=== PATIENT | male | born 1955 | race Caucasian/White ===

== ENCOUNTER 2017-11-19 15:17 | Outpatient (RCR) | payer OTHER, SELFPAY ==
[2017-11-19 16:36] LABS: International Normalized Ratio 2.9; Prothrombin Time (Protime)PT. 28.8 SECONDS (11.7-14.9)
== END 2017-11-19 15:30 | disposition home or self-care (01) ==
LOC: LAB 15:17
PROVIDERS: Family Provider Internal Medicine; PCP Internal Medicine; Visit Provider Internal Medicine Cardiovascular Disease
DX: I48.1 Persistent atrial fibrillation (principal); Z79.01 Long term (current) use of anticoagulants
CPT/HCPCS: 36415; 85610

== ENCOUNTER 2018-01-09 16:25 | Outpatient (RCR) | payer OTHER, SELFPAY ==
[2018-01-09 17:25] LABS: International Normalized Ratio 2.5; Prothrombin Time (Protime)PT. 27.3 SECONDS (11.7-14.9)
== END 2018-01-09 17:00 | disposition home or self-care (01) ==
LOC: LAB 16:25
PROVIDERS: Family Provider Internal Medicine; PCP Internal Medicine; Visit Provider Internal Medicine Cardiovascular Disease
DX: I48.1 Persistent atrial fibrillation (principal); Z79.01 Long term (current) use of anticoagulants
CPT/HCPCS: 36415; 85610

== ENCOUNTER 2018-07-31 15:18 | Outpatient (RCR) | payer OTHER, SELFPAY ==
[2018-07-31 16:15] LABS: International Normalized Ratio 2.2; Prothrombin Time (Protime)PT. 24.7 SECONDS (11.7-14.9)
== END 2018-07-31 17:00 | disposition home or self-care (01) ==
LOC: LAB 15:18
PROVIDERS: Family Provider Internal Medicine; PCP Internal Medicine; Referring Provider Internal Medicine Cardiovascular Disease; Visit Provider Internal Medicine Cardiovascular Disease
DX: I48.0 Paroxysmal atrial fibrillation (principal); I48.91 Unspecified atrial fibrillation; Z79.01 Long term (current) use of anticoagulants
CPT/HCPCS: 36415; 85610

== ENCOUNTER 2018-09-16 15:23 | Outpatient (RCR) | payer OTHER, SELFPAY ==
[2018-09-16 16:45] LABS: International Normalized Ratio 2.4; Prothrombin Time (Protime)PT. 26.1 SECONDS (11.7-14.9)
== END 2018-09-27 10:38 | disposition home or self-care (01) ==
LOC: LAB 15:23
PROVIDERS: Family Provider Internal Medicine; PCP Internal Medicine; Referring Provider Internal Medicine Cardiovascular Disease; Visit Provider Internal Medicine Cardiovascular Disease
DX: I48.0 Paroxysmal atrial fibrillation (principal); I48.91 Unspecified atrial fibrillation; Z79.01 Long term (current) use of anticoagulants
CPT/HCPCS: 36415; 85610

== ENCOUNTER 2018-11-08 15:19 | Outpatient (RCR) | payer OTHER, SELFPAY ==
[2018-11-08 17:22] LABS: International Normalized Ratio 2.2; Prothrombin Time (Protime)PT. 24.3 SECONDS (11.7-14.9)
== END 2018-11-08 16:00 | disposition home or self-care (01) ==
LOC: LAB 15:19
PROVIDERS: Family Provider Internal Medicine; PCP Internal Medicine; Referring Provider Internal Medicine Cardiovascular Disease; Visit Provider Internal Medicine Cardiovascular Disease
DX: I48.0 Paroxysmal atrial fibrillation (principal); I48.91 Unspecified atrial fibrillation; Z79.01 Long term (current) use of anticoagulants
CPT/HCPCS: 36415; 85610

== ENCOUNTER 2019-04-03 06:46 | Outpatient (RCR) | payer OTHER, SELFPAY ==
[2018-06-12 15:57] VITALS: BMI 40.0
[2018-12-10 15:18] VITALS: BMI 40.6
[2019-04-03 07:27] LABS: International Normalized Ratio 2.5; Prothrombin Time (Protime)PT. 26.8 SECONDS (11.7-14.9)
== END 2019-04-03 07:00 | disposition home or self-care (01) ==
LOC: LAB 06:46
PROVIDERS: Family Provider Internal Medicine; PCP Internal Medicine; Referring Provider Internal Medicine Cardiovascular Disease; Visit Provider Internal Medicine Cardiovascular Disease
DX: I48.0 Paroxysmal atrial fibrillation (principal); Z79.01 Long term (current) use of anticoagulants; Z92.29 Personal history of other drug therapy
CPT/HCPCS: 36415; 85610

== ENCOUNTER 2019-06-17 15:25 | Outpatient (RCR) | payer OTHER, SELFPAY ==
[2018-12-10 15:18] VITALS: BMI 40.6
[2019-06-09 16:10] VITALS: BMI 39.6
[2019-06-17 16:38] LABS: International Normalized Ratio 2.4; Prothrombin Time (Protime)PT. 26.2 SECONDS (11.7-14.9)
== END 2019-06-17 17:00 | disposition home or self-care (01) ==
LOC: LAB 15:25
PROVIDERS: Nurse Practitioner Family; Family Provider Internal Medicine; PCP Internal Medicine; Referring Provider Internal Medicine Cardiovascular Disease; Visit Provider Internal Medicine Cardiovascular Disease
DX: I48.0 Paroxysmal atrial fibrillation (principal); Z79.01 Long term (current) use of anticoagulants; Z92.29 Personal history of other drug therapy
CPT/HCPCS: 36415; 85610

== ENCOUNTER 2019-08-08 13:52 | Outpatient (RCR) | payer OTHER, SELFPAY ==
[2019-06-09 16:10] VITALS: BMI 39.6
[2019-08-08 15:21] LABS: International Normalized Ratio 2.3; Prothrombin Time (Protime)PT. 25.6 SECONDS (11.7-14.9)
== END 2019-08-08 18:00 | disposition home or self-care (01) ==
LOC: LAB 13:52
PROVIDERS: Family Provider Internal Medicine; PCP Internal Medicine; Referring Provider Internal Medicine Cardiovascular Disease; Visit Provider Internal Medicine Cardiovascular Disease
DX: I48.0 Paroxysmal atrial fibrillation (principal); Z79.01 Long term (current) use of anticoagulants; Z92.29 Personal history of other drug therapy
CPT/HCPCS: 36415; 85610

== ENCOUNTER 2019-10-27 15:21 | Outpatient (RCR) | payer OTHER, SELFPAY ==
[2019-06-09 16:10] VITALS: BMI 39.6
[2019-10-27 16:36] LABS: International Normalized Ratio 2.9; Prothrombin Time (Protime)PT. 30.1 SECONDS (11.7-14.9)
== END 2019-10-27 18:00 | disposition home or self-care (01) ==
LOC: LAB 15:21
PROVIDERS: Family Provider Internal Medicine; PCP Internal Medicine; Referring Provider Internal Medicine Cardiovascular Disease; Visit Provider Internal Medicine Cardiovascular Disease
DX: I48.0 Paroxysmal atrial fibrillation (principal); Z79.01 Long term (current) use of anticoagulants; Z92.29 Personal history of other drug therapy
CPT/HCPCS: 36415; 85610

== ENCOUNTER 2019-11-25 08:09 | Outpatient (RCR) | payer OTHER, SELFPAY ==
[2019-06-09 16:10] VITALS: BMI 39.6
[2019-11-25 08:32] LABS: International Normalized Ratio 2.6; Prothrombin Time (Protime)PT. 27.7 SECONDS (11.7-14.9)
== END 2019-11-25 18:00 | disposition home or self-care (01) ==
LOC: LAB 08:09
PROVIDERS: Family Provider Internal Medicine; PCP Internal Medicine; Referring Provider Internal Medicine Cardiovascular Disease; Visit Provider Internal Medicine Cardiovascular Disease
DX: I48.0 Paroxysmal atrial fibrillation (principal); Z79.01 Long term (current) use of anticoagulants; Z92.29 Personal history of other drug therapy
CPT/HCPCS: 36415; 85610

== ENCOUNTER → 2019-12-17 09:22 | Outpatient (CLI) | payer OTHER, SELFPAY ==
[2019-12-16 12:43] VITALS: BMI 40.2
[2019-12-17 09:41] LABS: Absolute Lymphocyte Count 2.65 X10^3/uL (0.83-4.51); Absolute Neutrophil Count 6.1 X10^3/uL (2.0-7.7); Basophil# 0.07 X10^3/uL; Basophil% 0.7 % (0-1); Eosinophil# 0.41 X10^3/uL; Eosinophils% 4.1 % (0-5); Hematocrit 48.4 % (40-54); Hemoglobin 15.3 g/dL (13.0-16.5); Lymphocyte # 2.65 X10^3/ul (4.0); Lymphocyte % 26.2 % (19-41); Mean Corp Hgb Conc 31.6 g/dL (32-36); Mean Corpuscular Hgb 27.4 pg (27.0-32.0); Mean Corpuscular Volume 86.6 fL (80-94); Mean Platelet Vol. 9.8 fl (6.2-12.0); Monocyte# 0.85 X10^3/uL; Monocyte% 8.4 % (0-10); NRBC Flagged by Analyzer 0 % (0-5); Neutrophil # 6.08 X10^3/uL (2.7-7.7); Platelet Count 329 K/mm3 (150-450); RBC Distribution Width CV 13.8 % (11.6-14.6); RBC Distribution Width SD 43.8 fl (35.1-43.9); Red Blood Count 5.59 M/mm3 (4.6-6.2); White Blood Count 10.1 K/mm3 (4.4-11.0)
[2019-12-20 03:07] LABS: Alternaria tenuis <0.10 kU/L (Class 0); Ash, White <0.10 kU/L (Class 0); Aspergillus fumigatus <0.10 kU/L (Class 0); Bermuda Grass <0.10 kU/L (Class 0); Birch <0.10 kU/L (Class 0); Black Walnut <0.10 kU/L (Class 0); Cat Hair / Dander,Stand <0.10 kU/L (Class 0); Cedar, Mountain <0.10 kU/L (Class 0); Cladosporium herbarum <0.10 kU/L (Class 0); Cockroach, American <0.10 kU/L (Class 0); Cottonwood <0.10 kU/L (Class 0); D farinae Mite 0.81 kU/L (Class II); D pteronyssinus 0.68 kU/L (Class II); Dog Epithelia <0.10 kU/L (Class 0); Elm, American White <0.10 kU/L (Class 0); Immunoglobulin E 94 IU/mL (6-495); Maple/Box Elder <0.10 kU/L (Class 0); Mulberry, White <0.10 kU/L (Class 0); Oak, White <0.10 kU/L (Class 0); Pecan <0.10 kU/L (Class 0); Penicillium Notatum <0.10 kU/L (Class 0); Pigweed, Rough <0.10 kU/L (Class 0); Ragweed, Short/Common <0.10 kU/L (Class 0); Russian Thistle <0.10 kU/L (Class 0); Sheep Sorrel <0.10 kU/L (Class 0); Sycamore, American <0.10 kU/L (Class 0); Timothy Grass <0.10 kU/L (Class 0)
[2019-12-20 10:13] LABS: Immunoglobulin E 96 IU/mL (6-495)
[2019-12-20 10:14] LABS: Mouse Urine <0.10 kU/L (Class 0)
== END ==
PROVIDERS: PCP Internal Medicine; Referring Provider Internal Medicine Critical Care Medicine; Visit Provider Internal Medicine Critical Care Medicine
DX: R06.02 Shortness of breath (principal)
CPT/HCPCS: 36415; 82785; 85025; 86003

== ENCOUNTER → 2020-01-07 | Outpatient (CLI) | payer OTHER, SELFPAY ==
[2019-12-16 12:43] VITALS: BMI 40.2
--- NOTE | 2020-01-09 10:21 | PFT ---
INTRODUCTION: The patient is a 64-year-old male that presents for pulmonary function studies secondary to a diagnosis of shortness of breath. Respiratory therapy reports good patient effort. Bronchodilators were used during testing. INTERPRETATION: Forced expiration spirometry demonstrates no evidence of a large airways obstructive ventilatory defect. There was no significant response to aerosolized bronchodilators. Spirograms are of good quality and plateau gradually indicating slow emptying of the lungs. Body plethysmography was performed and reveals lung volumes to be within normal limits. Diffusing capacity by single breath CO is also within normal limits at 86% of predicted. IMPRESSION: Grossly normal pulmonary function studies.
== END | disposition home or self-care (01) ==
LOC: PSN 12:37
PROVIDERS: PCP Internal Medicine; Referring Provider Internal Medicine Critical Care Medicine; Visit Provider Internal Medicine Critical Care Medicine
DX: R06.02 Shortness of breath (principal)
CPT/HCPCS: 94060; 94726; 94729

== ENCOUNTER → 2020-01-08 | Outpatient (CLI) | payer OTHER, SELFPAY ==
[2019-12-16 12:43] VITALS: BMI 40.2
[2020-01-08 12:39] VITALS: PULSE 75; PULSE 78; PULSE 92; PULSE 93; PULSE 96; O2SAT 95; O2SAT 96; O2SAT 98
--- NOTE | 2020-01-09 10:41 | PCM.PSN.6M ---
PSN 6 Minute Walk Test - 6 Minute Walk Test 6 Minute Walk Test: 6 Minute Walk Test PSN:6-Minute Walk Test Start: 01/08/20 12:39 Freq: Status: Active Protocol: [id number] Document 01/08/20 12:39 YULIANA (Rec: 01/08/20 12:41 YULIANA [id number]) 6 Minute Walk Test Date Performed 01/08/20 Time Performed 12:30 Height 6 ft Weight: 298 lb Weight in Pounds 298.[address]: Vipul Wang Assistive device used: None Pre-test Oxygen Delivery Method Room Air Pulse Ox (%) 96 Pulse Rate (60-100 beats/min) 75 Dyspnea Carisa Scale (0-10) 0 Exertion Carisa Scale (6-20) 6 1st minute Oxygen Delivery Method Room Air Pulse Ox (%) 96 Pulse Rate (60-100 beats/min) 92 2nd minute Oxygen Delivery Method Room Air Pulse Ox (%) 96 Pulse Rate (60-100 beats/min) 93 3rd minute Oxygen Delivery Method Room Air Pulse Ox (%) 95 Pulse Rate (60-100 beats/min) 93 4th minute Oxygen Delivery Method Room Air Pulse Ox (%) 95 Pulse Rate (60-100 beats/min) 93 5th minute Oxygen Delivery Method Room Air Pulse Ox (%) 95 Pulse Rate (60-100 beats/min) 96 6th minute Oxygen Delivery Method Room Air Pulse Ox (%) 95 Pulse Rate (60-100 beats/min) 96 Dyspnea Carisa Scale (0-10) 2 Exertion Carisa Scale (6-20) 12 Post-test Oxygen Delivery Method Room Air Pulse Ox (%) 98 Pulse Rate (60-100 beats/min) 78 Full Laps Walked 19 Partial Lap, Number of Tiles Walked 2 Total Distance Walked (ft) 1123 - Interpretation Interpretation: The patient ambulated 1123 feet over the course of 6 minutes beginning on room air without assistive devices or breaks. Pretesting oxygen saturation was noted to be 96% on room air. With ambulation, the rosie oxygen saturation was 95%. There was no significant exertional oxygen desaturation. - Recommendations Recommendations: There is no indication for the use of supplemental oxygen at this time.
== END | disposition home or self-care (01) ==
LOC: PSN 12:17
PROVIDERS: PCP Internal Medicine; Referring Provider Internal Medicine Critical Care Medicine; Visit Provider Internal Medicine Critical Care Medicine
DX: R06.02 Shortness of breath (principal)
CPT/HCPCS: 94618

== ENCOUNTER 2020-01-15 11:00 | Outpatient (RCR) | payer OTHER, SELFPAY ==
[2019-06-09 16:10] VITALS: BMI 39.6
[2019-12-16 12:43] VITALS: BMI 40.2
== END 2020-01-15 18:00 | disposition home or self-care (01) ==
LOC: LAB 11:00
PROVIDERS: Family Provider Internal Medicine; PCP Internal Medicine; Referring Provider Internal Medicine Cardiovascular Disease; Visit Provider Internal Medicine Cardiovascular Disease
DX: I48.0 Paroxysmal atrial fibrillation (principal); Z79.01 Long term (current) use of anticoagulants; Z92.29 Personal history of other drug therapy
CPT/HCPCS: 36415; 85610

== ENCOUNTER 2020-03-06 07:11 | Outpatient (RCR) | payer OTHER, SELFPAY ==
[2020-01-27 14:20] VITALS: BMI 40.6
[2020-03-06 08:04] LABS: International Normalized Ratio 2.6; Prothrombin Time (Protime)PT. 27.2 SECONDS (11.7-14.9)
== END 2020-03-06 18:00 | disposition home or self-care (01) ==
LOC: LAB 07:11
PROVIDERS: Family Provider Internal Medicine; PCP Internal Medicine; Referring Provider Internal Medicine Cardiovascular Disease; Visit Provider Internal Medicine Cardiovascular Disease
DX: I48.0 Paroxysmal atrial fibrillation (principal); Z79.01 Long term (current) use of anticoagulants; Z92.29 Personal history of other drug therapy
CPT/HCPCS: 36415; 85610

== ENCOUNTER 2020-07-16 07:32 | Outpatient (RCR) | payer OTHER, SELFPAY ==
[2020-01-27 14:20] VITALS: BMI 40.6
[2020-07-16 08:56] LABS: International Normalized Ratio 2.3
== END 2020-07-16 18:00 | disposition home or self-care (01) ==
LOC: LAB 07:32
PROVIDERS: Family Provider Internal Medicine; PCP Internal Medicine; Referring Provider Internal Medicine Cardiovascular Disease; Visit Provider Internal Medicine Cardiovascular Disease
DX: I48.0 Paroxysmal atrial fibrillation (principal); Z79.01 Long term (current) use of anticoagulants
CPT/HCPCS: 36415; 85610

== ENCOUNTER 2020-10-13 16:27 | Outpatient (RCR) | payer OTHER, SELFPAY ==
[2020-01-27 14:20] VITALS: BMI 40.6
[2020-10-13 16:04] VITALS: BMI 41.8
[2020-10-13 17:27] LABS: International Normalized Ratio 2.7; Prothrombin Time (Protime)PT. 28.2 SECONDS (11.7-14.9)
== END 2020-10-13 18:00 | disposition home or self-care (01) ==
LOC: LAB 16:27
PROVIDERS: Family Provider Internal Medicine; PCP Internal Medicine; Referring Provider Internal Medicine Cardiovascular Disease; Visit Provider Internal Medicine Cardiovascular Disease
DX: I48.0 Paroxysmal atrial fibrillation (principal); Z79.01 Long term (current) use of anticoagulants
CPT/HCPCS: 36415; 85610

== ENCOUNTER 2020-11-08 08:22 | Outpatient (RCR) | payer OTHER, SELFPAY ==
[2020-11-08 09:18] LABS: International Normalized Ratio 2.5; Prothrombin Time (Protime)PT. 26.3 SECONDS (11.7-14.9)
== END 2020-11-08 18:00 | disposition home or self-care (01) ==
LOC: LAB 08:22
PROVIDERS: Family Provider Internal Medicine; PCP Internal Medicine; Referring Provider Internal Medicine Cardiovascular Disease; Visit Provider Internal Medicine Cardiovascular Disease
DX: I48.0 Paroxysmal atrial fibrillation (principal); Z79.01 Long term (current) use of anticoagulants
CPT/HCPCS: 36415; 85610

== ENCOUNTER 2021-01-20 05:35 | Observation (INO) | payer OTHER, SELFPAY ==
[2021-01-20] VITALS (8 sets, daily range): BP systolic 131–160; BP diastolic 58–76; PULSE 55–69; RESP 18; TEMP 36.3–36.8; O2SAT 96–98; BMI 42.5; BMI 41.9; BMI 41.8
--- NOTE | 2021-01-20 05:48 | RAD_ITS ---
STUDY: X-RAY CHEST REASON FOR EXAM: Male, 65 years old. chest pain TECHNIQUE: AP portable COMPARISON: 03/08/2017 FINDINGS: The lungs are clear and expanded. There is no demonstrated pleural abnormality. There is borderline cardiomegaly. Normal mediastinum and beka. Normal visualized pulmonary arteries. Normal visualized aortic arch and descending thoracic aorta. Normal visualized thoracic spine. Normal visualized ribs, clavicles, and shoulders. There is no demonstrated abnormality of the visualized soft tissue structures of the upper abdomen. RAD/Chest 1 View (Portable) IMPRESSION: Negative x-ray examination of the chest. No interval change. Electronically Signed: Chandler Gonzalez MD at 6:19 EDT Tel , Service support ,
--- NOTE | 2021-01-20 05:48 | EKG12_ITS ---
Test Reason : CP Blood Pressure : / mmHG Vent. Rate : 066 BPM Atrial Rate : 066 BPM P-R Int : 166 ms QRS Dur : 100 ms QT Int : 408 ms P-R-T Axes : 075 -30 028 degrees QTc Int : 427 ms Normal sinus rhythm Left axis deviation Abnormal ECG Confirmed by YOEL DOBBS, CRISTAL ([id number]), videotape editor JOSE LUIS OROPEZA ([id number]) on 01/24/2021 1:23:05 PM Referred By: CL Confirmed By:BECCA DIALLO MD
--- NOTE | 2021-01-20 05:48 | ED.DCSUM_ITS ---
History of Present Illness Chief Complaint: Chest Pain Informant: Patient Narrative: 65-year-old male with past medical history of hypertension, ARABELLA, atrial fibrillation presents with concern for chest pain. States it began approximately 3 hours ago. Awoke him from sleep. States it is been persistent since that time. Aching in nature. Admits to mild shortness of breath and diaphoresis. Denies any nausea or vomiting. Patient is on Coumadin. Denies any history of coronary artery disease. Former smoker. Past Medical History - Allergies and Home Meds Allergies/Adverse Reactions: Allergies No Known Allergies Allergy (Verified 01/20/21 05:39) Primary Care Physician: Marie Marquis MD [Primary Care Provider] - Prior records reviewed: Yes Past Medical History: - - Hypertension, ARABELLA, atrial fibrillation Surgical History: noncontributory Lives: Spouse/ Significant Other Smoking Status: Former smoker Alcohol: Rare Drugs: None - Family History Paternal Family History: Family History (Last Reviewed 08/13/20 @ 10:11 by Palma Whiteside) Father CAD (coronary artery disease) Myocardial infarction S/P CABG x 3, Onset Age: 38 Mother Cancer Hypertension Sister Cardiomyopathy Sister Atrial fibrillation Grandmother CVA (cerebral vascular accident) Grandfather Cancer Family History: Reports: Heart Disease Review of Systems General: Reports: Sweats. Denies: Chills, Fever Eyes: Denies: Visual changes - bilaterally, Diplopia ENT: Denies: Rhinorrhea, Sore throat Cardiovascular: Reports: Chest pain. Denies: Palpitations Respiratory: Reports: Dyspnea. Denies: Cough, Dyspnea on exertion Gastrointestinal: Denies: Abdominal pain, Nausea, Vomiting, Diarrhea, Melena, Hematochezia Genitourinary: Denies: Dysuria, Hematuria, Frequency Musculoskeletal: Denies: Back pain, Extremity Pain Skin: Denies: Rash, Wounds Neurological: Denies: Headache, Weakness, Numbness Physical Exam Vital Signs/Narrative: Vital Signs Temp Pulse Resp BP Pulse Ox 01/20/21 05:35 98.3 F 69 18 160/58 H 98 Inital Vital Signs reviewed: Yes General: Well nourished, Well developed, No Acute Distress Head: Normocephalic, Atraumatic Eyes: Perrl, EOMI ENT: Moist mucous membranes, No rhinorrhea Neck: Supple, Nontender Cardiovascular: Regular rate, Regular rhythm, No murmurs Respiratory: No distress, CTA bilaterally, Chest nontender Abdomen: Soft, Nontender, Nondistended, Normal bowel sounds Back: Nontender, Normal Inspection Extremities: Nontender, No edema Skin: Normal color, No rash Neurological: Alert, Oriented x3, Cranial nerves II-XII grossly intact, Normal Strength, Normal Sensation Psychological: Normal affect, Normal Mood Diagnostic/Tx/Re-eval Chest X-Ray - ED: 1 View, Read by ED Physician, Read by Radiologist, Normal Laboratory Data 01/20/21 01/20/21 05:45 05:45 WBC 9.0 RBC 5.31 Hgb 14.4 Hct 46.0 MCV 86.6 MCH 27.1 MCHC 31.3 L RDW Std Deviation 42.8 RDW Coeff of Bob 13.5 Plt Count 320 MPV 9.7 Immature Gran % (Auto) 0.600 Neut % (Auto) 59.6 Lymph % (Auto) 26.6 [place] % (Auto) 10.4 H Eos % (Auto) 2.1 Baso % (Auto) 0.7 Absolute Neuts (auto) 5.4 Absolute Lymphs (auto) 2.40 Nucleated RBC % 0 Sodium 140 Potassium 3.9 Chloride 106 Carbon Dioxide 26.0 Anion Gap 8 BUN 21 H Creatinine 0.94 Estim Creat Clear Calc 87.14 Est GFR (MDRD) Af Amer 104 Est GFR (MDRD) Non-Af 86 BUN/Creatinine Ratio 22.4 H Glucose 105 Calcium 9.1 Magnesium 2.3 Troponin I < 0.015 - Rhythm Strip Rhythm Strip: Sinus Rhythm Rate: 66 Ectopy: None - EKG Initial EKG Interpretation: Sinus Rhythm - Normal sinus rhythm at 66 bpm. MD interval 166 ms. QTC of [address] changes. Left [place] deviation. - Medical Decision Making Patient appears well and nontoxic. Given aspirin and nitroglycerin upon arrival. EKG nonischemic. First troponin negative. Patient's story is concerning for cardiac chest pain given his shortness of breath and diaphoresis associated with retrosternal pressure-like chest pain radiating to his left arm. Spoke with hospitalist who is agreeable with admission. Patient admitted in stable condition. Impression: 1. Chest pain 2. Dyspnea 3. Diaphoresis ED Disposition - Plan for ED Patient: Disposition: Home or Assisted Living Referrals: Marie Marquis MD [Primary Care Provider] -
[2021-01-20 05:54] LABS: Absolute Neutrophil Count 5.4 X10^3/uL (2.0-7.7); Basophil# 0.06 X10^3/uL; Basophil% 0.7 % (0-1); Eosinophil# 0.19 X10^3/uL; Eosinophils% 2.1 % (0-5); Hemoglobin 14.4 g/dL (13.0-16.5); Lymphocyte % 26.6 % (19-41); Mean Corp Hgb Conc 31.3 g/dL (32-36); Mean Corpuscular Hgb 27.1 pg (27.0-32.0); Mean Corpuscular Volume 86.6 fL (80-94); Mean Platelet Vol. 9.7 fl (6.2-12.0); Monocyte# 0.94 X10^3/uL; Monocyte% 10.4 % (0-10); NRBC Flagged by Analyzer 0 % (0-5); Neutrophil # 5.37 X10^3/uL (2.7-7.7); Neutrophil % 59.6 % (47-70); Platelet Count 320 K/mm3 (150-450); RBC Distribution Width CV 13.5 % (11.6-14.6); RBC Distribution Width SD 42.8 fl (35.1-43.9); Red Blood Count 5.31 M/mm3 (4.6-6.2)
[2021-01-20] MEDS: Aspirin 81 MG TAB.CHEW 324 MG PO (05:55)
[2021-01-20] MEDS: Nitroglycerin SL (ED/IMG/CATH) 0.4 MG TABLET SL (06:01)
[2021-01-20 06:09] LABS: Anion Gap 8 (5-15); BUN 21 mg/dL (7-18); BUN/Creat Ratio 22.4 RATIO (10-20); Calcium,Total 9.1 mg/dL (8.5-10.1); Chloride 106 mmol/L (98-107); Creatinine, Serum 0.94 mg/dL (0.70-1.30); EST Glomerular Filtration Rate 86 mL/min (>60); Est Glom Filt Rate - Afr Amer 104 mL/min (>60); Estimated Creatinine Clearance 87.14 ml/min; Glucose 105 mg/dL (74-106); Magnesium 2.3 mg/dL (1.6-2.6); Potassium 3.9 mmol/L (3.5-5.1); Sodium Level 140 mmol/L (136-145)
--- NOTE | 2021-01-20 06:51 | PCM.HP.STD ---
Problem List (1) Chest pain Status: Acute Qualifiers: Chest pain type: unspecified Qualified Code(s): R07.9 - Chest pain, unspecified (2) Morbid obesity Status: Chronic (3) Hyperlipidemia Status: Chronic Qualifiers: Hyperlipidemia type: pure hypercholesterolemia Qualified Code(s): E78.00 - Pure hypercholesterolemia, unspecified; E78.0 - Pure hypercholesterolemia (4) Glaucoma Status: Chronic Qualifiers: Glaucoma type: unspecified Laterality: unspecified laterality Qualified Code(s): H40.9 - Unspecified glaucoma (5) Atrial fibrillation and flutter Status: Chronic (6) Hypertension Status: Chronic Qualifiers: Hypertension type: essential hypertension Qualified Code(s): I10 - Essential (primary) hypertension (7) Sleep apnea Status: Chronic Qualifiers: Sleep apnea type: unspecified type Qualified Code(s): G47.30 - Sleep apnea, unspecified (8) Asthma Status: Chronic Qualifiers: Asthma severity: unspecified severity Asthma persistence: unspecified Asthma complication type: unspecified Qualified Code(s): J45.909 - Unspecified asthma, uncomplicated History of Present Illness Date of Admission: 01/20/21 Chief Complaint: Chest pain The patient is a 65 y/o M w/ PMHx: PAF s/p RFA on chronic anticoagulation, HTN, HLD, ARABELLA, Morbid Obesity, GERD, Chronic Asthma, Former tobacco use who presents to the [facility] ED on 01/20/21 with history of being awoken from sleep with chest pain, midsternal region, noted pressure like sensation, rated 5/10 in severity with dyspnea, diaphoresis with eventual start of radiation to the left shoulder and LUE proximal arm near ~5:30 am prompting him to eventual present to the ED for evaluation. In the ED upon evaluation he notes his chest discomfort has been improving and currently rates it 3 out of 10 in severity. Work-up in the ED included T 98.3, heart 69, BP 160/58, respiratory rate 18, 98% on room air, repeat BP 146/65, CBC with WC 9, hemoglobin 14.4, platelet 320 without marked shift, BMP with BUN/creatinine 21/0.94, magnesium 2.3, troponin less than 0.015, EKG with sinus rhythm with nonspecific ST changes with no acute evidence of ischemia, chest x-ray without acute cardiopulmonary findings. In the ED patient ministered aspirin 300 mg p.o. x1 as well as nitroglycerin. Past Medical History Past Medical History (Chronic Problems): Chronic Problems (Last Reviewed 08/13/20 @ 10:11 by Palma Whiteside) Asthma (Chronic) PND (post-nasal drip) (Chronic) Obstructive sleep apnea (Chronic) History of radiofrequency ablation procedure for cardiac arrhythmia (Chronic) June [address] Matos at [facility] : atrial flutter/fib ablation Atrial flutter (Chronic) Dyspnea on exertion (Chronic) Paroxysmal atrial fibrillation (Chronic) Shortness of breath (Chronic) History of Coumadin therapy (Chronic) group home current use of anticoagulant (Chronic) Morbid obesity (Chronic) Hyperlipidemia (Chronic) Glaucoma (Chronic) Atrial fibrillation and flutter (Chronic) Hypertension (Chronic) Sleep apnea (Chronic) Medical History: Medical History (Last Reviewed 08/13/20 @ 10:11 by Palma Whiteside) Obesity (Acute) E66.9 Obstructive sleep apnea (Chronic) G47.33 Atrial flutter (Chronic) I48.92 Paroxysmal atrial fibrillation (Chronic) I48.0 History of Coumadin therapy (Chronic) Z92.29 group home current use of anticoagulant (Chronic) Z79.01 Atrial fibrillation with RVR (Acute) I48.91 Morbid obesity (Chronic) E66.01 Hyperlipidemia (Chronic) E78.5 Glaucoma (Chronic) H40.9 Atrial fibrillation and flutter (Chronic) I48.91, I48.92 Hypertension (Chronic) I10 Sleep apnea (Chronic) G47.30 Allergies No Known Allergies Allergy (Verified 01/20/21 05:39) Home Medications: Ambulatory Orders Medication Instructions Recorded Latanoprost 0.005% [Xalatan 1 drp QHS 08/10/14 Opthalmic] omeprazole 20 mg capsule,delayed 40 mg PO QDAY cap 01/15/20 release sotalol 120 mg tablet 120 mg PO BID #180 tab 01/15/20 albuterol sulfate 90 mcg/actuation 2 puff INHALATION Q6H PRN #18 g 01/27/20 aerosol inhaler fluticasone propionate 50 2 spray INTRANASAL QDAY #1 ea 01/27/20 mcg/actuation nasal spray,suspension fluticasone propionate 220 2 puff INHALATION BID #12 g 08/13/20 mcg/actuation HFA aerosol inhaler atorvastatin 20 mg tablet 20 mg PO QHS #90 tab 12/24/20 warfarin 5 mg tablet 7.5 mg PO QDAY #145 tab 12/24/20 Surgical History: Surgical History (Last Reviewed 08/13/20 @ 10:11 by Palma Whiteside) History of radiofrequency ablation procedure for cardiac arrhythmia (Chronic) Z98.[address] Matos at [facility] : atrial flutter/fib ablation Surgical History: - - RFA, cataract surgery. Psychiatric History: No pertinent psych hx Lives: Spouse/ Significant Other Smoking Status: Former smoker - Patient quit cigarette tobacco usage approximately 15 years prior to current presentation with prior to this 1.5 pack/day cigarette tobacco use since he been 15 years old. Tobacco Use: Non-smoker Alcohol: Occasional Drugs: None - *Family History Paternal Family History: Family History (Last Reviewed 08/13/20 @ 10:11 by Palma Whiteside) Father CAD (coronary artery disease) Myocardial infarction S/P CABG x 3, Onset Age: 38 Mother Cancer Hypertension Sister Cardiomyopathy Sister Atrial fibrillation Grandmother CVA (cerebral vascular accident) Grandfather Cancer History Items: High Cholesterol, Heart Disease, Hypertension Maternal Family History: Family History (Last Reviewed 08/13/20 @ 10:11 by Palma Whiteside) Father CAD (coronary artery disease) Myocardial infarction S/P CABG x 3, Onset Age: 38 Mother Cancer Hypertension Sister Cardiomyopathy Sister Atrial fibrillation Grandmother CVA (cerebral vascular accident) Grandfather Cancer History Items: Cancer, Heart Disease Review of Systems Constitutional: Reports: Fatigue. Denies: Anorexia, Chills, Fever, Malaise, Weakness, Weight Change HEENT: Denies: Head Aches, Sinus Congestion, Sinus Drainage Cardiovascular: Reports: Chest Pain, Chest Pressure, Chest Tightness. Denies: Light Headedness, Orthopnea, Palpitations, Syncope Respiratory: Reports: Shortness of Breath. Denies: Cough, Shortness of breath at rest, Shortness of breath upon exertion, Sputum production Gastrointestinal: Denies: Abdominal Pain, Nausea, Vomiting Genitourinary: Denies: Dysuria Musculoskeletal: Reports: Back Pain. Denies: Joint Pain, Joint Tenderness Skin: Denies: Rash, Wounds Neurological: Denies: Numbness, Tingling, Focal weakness Psychiatric: Denies: Anxiety, Depression, Homicidal Ideations, Suicidal Ideations Hematologic/ Lymphatic: Denies: Easy Bruising, Easy Bleeding VTE Information - Inpt Only VTE Present on Admission: No VTE Mechan Device Prophylaxis: SCD's VTE Pharm Prophylaxis ordered?: No Reason prophylaxis not ordered:: Treatment Not Indicated - Pending admission INR, on coumadin. Patient Problems: Active and Suspected Problems (Last Reviewed 08/13/20 @ 10:11 by Palma Whiteside) Chest pain (Acute) Subjective: Patient seated upright in the ED bed, mildly fatigued appearance, notes chest pain is improving, currently 3 out of 10. Objective: Physical Examination: General: awake, alert, oriented x 3 and cooperative, seated upright in the ED bed, mildly fatigued appearance, notes chest pain improving, currently 3 of 10 in severity. Skin: normal color, turgor, no icterus, cyanosis. HEENT: AT/NC, EOMI, PERRLA, MMM, no carotid bruits or JVD noted; however, thickened neck makes examination difficult. Lungs: Diminished breath sounds, distant, normal effort, no rales, ronchi or wheezing. Heart: Regular rate and rhythm; no gallop, rub audible. Abdomen: soft, morbidly obese, NTTP, ND, normal BS, unable to discern HSM secondary to habitus. Extremities: no cyanosis, clubbing, or edema. Neurological: patient awake, alert, oriented as noted; cognitive function intact; pupils equally reactive to light and accomodation; cranial nerves II-XII grossly normal, moving all 4 extremities, no focal deficits, strength mildly global decrease secondary to acute presentation. Psychiatric: affect appears mildly fatigued otherwise normal, no acute evidence of depressive or anxiety feelings. - Physical Exam Vitals/I&O's: Vital Signs Temp Pulse Resp BP Pulse Ox 98.3 F 65 18 146/65 H 97 01/20/21 05:35 01/20/21 06:01 01/20/21 05:35 01/20/21 06:01 01/20/21 05:49 Oxygen Delivery Method Room Air Weight: 313 lb 7.957 oz Body Mass Index (BMI) 42.5 Laboratory Results 01/20/21 05:45: WBC 9.0, RBC 5.31, Hgb 14.4, Hct 46.0, MCV 86.6, MCH 27.1, MCHC 31.3 L, RDW Std Deviation 42.8, RDW Coeff of Bob 13.5, Plt Count 320, MPV 9.7, Immature Gran % (Auto) 0.600, Neut % (Auto) 59.6, Lymph % (Auto) 26.6, [place] % (Auto) 10.4 H, Eos % (Auto) 2.1, Baso % (Auto) 0.7, Absolute Neuts (auto) 5.4, Absolute Lymphs (auto) 2.40, Nucleated RBC % 0 01/20/21 05:45: Sodium Pending, Potassium Pending, Chloride Pending, Carbon Dioxide Pending, Anion Gap Pending, BUN Pending, Creatinine Pending, Est GFR (MDRD) Af Amer Pending, Est GFR (MDRD) Non-Af Pending, BUN/Creatinine Ratio Pending, Glucose Pending, Calcium Pending, Magnesium Pending, Troponin I Pending Current Medications Nitroglycerin (Nitroglycerin Sl (Ed/Img/Cath) 0.4 Mg Tablet) 0.4 mg SL Q5M PRN PRN Reason: Chest pain Last Admin: 01/20/21 06:01 Dose: 0.4 mg Documented by: Assessment/Plan All Active Problems (Last Reviewed 08/13/20 @ 10:11 by Palma Whiteside) Chest pain (Acute) Obesity (Acute) Atrial fibrillation with RVR (Acute) Atrial fibrillation with RVR (Acute) The patient is a 65 y/o M w/ PMHx: PAF s/p RFA on chronic anticoagulation, HTN, HLD, ARABELLA, Morbid Obesity, GERD, Chronic Asthma, Former tobacco use who presents to the [facility] ED on 01/20/21 with history of being awoken from sleep with chest pain, midsternal region, noted pressure like sensation, rated 5/10 in severity with dyspnea, diaphoresis with eventual start of radiation to the left shoulder and LUE proximal arm near ~5:30 am. 1. Chest Pain: EKG in ED with sinus rhythm with nonspecific ST changes with no acute evidence of ischemia, CXR w/ no acute cardiopulmonary findings, initial trop normal x1. Will admit to PCU, place on a monitored bed to assure no acute myocardial infarction with serial cardiac enzymes and EKGs. Repeat EKGs and cardiac enzymes remain unremarkable will pursue a.m. cardiac stress testing. Magnesium level 2.3. FLP in AM. ASA, NG, morphine. 2. Hypertension: Continue home regimen including sotalol, PRN hydralazine. 3. Hyperlipidemia: Continue home statin regimen. AM FLP. 4. PAF: Patient status post RFA prior, will continue patient home sotalol as well as Coumadin with INR assessment ending upon admission. 5. Former Tobacco use: Encourage continued tobacco cessation. 6. Morbid Obesity: Weight loss and lifestyle changes encouraged, nutrition consulted. 7. ARABELLA: We will continue patient home CPAP nightly. 8. Chronic Asthma: Hold home inhalers, in interim maintain on ATC duonebs, PRN albuterol, HOB, IS parameters. 9. DVT prophylaxis: SCDs, continue Coumadin with pending INR. OBSV E&M: [id number] Initial observation care L3
--- NOTE | 2021-01-20 06:53 | EKG12_ITS ---
Test Reason : Blood Pressure : / mmHG Vent. Rate : 057 BPM Atrial Rate : 057 BPM P-R Int : 172 ms QRS Dur : 096 ms QT Int : 444 ms P-R-T Axes : 048 -23 016 degrees QTc Int : 432 ms Sinus bradycardia Otherwise normal ECG When compared with ECG of 20-JAN-2021 05:38, MANUAL COMPARISON REQUIRED, DATA IS UNCONFIRMED Confirmed by THOMAS DOBBS, ERIS ([id number]), news editor JOSE LUIS OROPEZA ([id number]) on 01/24/2021 1:53:05 PM Referred By: Eris Green Confirmed By:ERIS GREEN MD
[2021-01-20 07:10] LABS: International Normalized Ratio 2.5; Prothrombin Time (Protime)PT. 26.5 SECONDS (11.7-14.9)
[2021-01-20] MEDS: 0.9% Normal Saline 1,000 ML 100 ML IV (08:09)
--- NOTE | 2021-01-20 11:39 | DCINST_ITS ---
- Discharge Diagnoses Current Active Problems: Current Active and Chronic Problems (Last Reviewed 08/13/20 @ 10:11 by Palma Whiteside) Chest pain (Acute) Asthma (Chronic) Morbid obesity (Chronic) Hyperlipidemia (Chronic) Glaucoma (Chronic) Atrial fibrillation and flutter (Chronic) Hypertension (Chronic) Sleep apnea (Chronic) Allergies/Adverse Reactions: Allergies No Known Allergies Allergy (Verified 01/20/21 05:39) Medications to take at Discharge Latanoprost 0.005% [Xalatan Opthalmic] 1 drp EACH EYE QHS 08/10/14 omeprazole 20 mg capsule,delayed release 40 mg PO QDAY cap 01/15/20 sotalol 120 mg tablet 120 mg PO BID #180 tab 01/15/20 albuterol sulfate 90 mcg/actuation aerosol inhaler 2 puff INHALATION Q6H PRN #18 g 01/27/20 fluticasone propionate 50 mcg/actuation nasal spray,suspension 2 spray INTRANASAL QDAY #1 ea 01/27/20 fluticasone propionate 220 mcg/actuation HFA aerosol inhaler 2 puff INHALATION BID #12 g 08/13/20 atorvastatin 20 mg tablet 20 mg PO QHS #90 tab 12/24/20 warfarin 5 mg tablet 7.5 mg PO QDAY #145 tab 12/24/20 Primary Care Physician: Marie Marquis MD [Primary Care Provider] - Test Results: Test results from this visit will be discussed in further detail at your follow- up appointment, if applicable.
--- NOTE | 2021-01-20 14:58 | STRESSREP_ITS ---
Stress Test Report Date: 01/20/2021 Procedure: Pharmacologic stress nuclear imaging study Indications: Chest pain Consent: Per the patient Procedure: The patient underwent pharmacologic (Regadenoson) evaluation with a peak heart rate of 71 beats per minute (45%predicted maximal heart rate) and a peak blood pressure of 132/84 mmHg. The baseline ECG demonstrated normal sinus rhythm. EKG during lexiscan infusion revealed no significant ischemic changes. EKG post infusion revealed no significant ischemic changes Patient had mild chest discomfort at baseline which did not change significantly with Lexiscan infusion or in the recovery phase. No significant arrhythmias. The examination was discontinued secondary to completion of protocol. Impression: 1. Lexiscan stress test test is negative for Lexiscan infusion induced EKG changes of ischemia. 2. Lexiscan stress test test is negative for Lexiscan infusion induced chest pain. 3. Results of the nuclear portion of the test is as below Myocardial perfusion imaging study: Technique: The patient was injected with 14.4 millicuries of technetium 99m Cardiolite and subsequently rest SPECT Cardiolite nuclear imaging was obtained in the horizontal long, vertical long, and short axis views. The patient underwent pharmacologic [Regadenoson 0.4mg] evaluation. Please see above for details. The patient was injected with 44.7 millicuries of technetium 99m Cardiolite and subsequently stress SPECT Cardiolite nuclear imaging was obtained in the horizontal long, vertical long, and short axis views. A gated Cardiolite study at peak stress was obtained. Interpretation: Rest and stress SPECT Cardiolite nuclear imaging status post realignment, normalization, and attenuation correction demonstrate [overall normal myocardial radioisotope uptake at rest. On the stress images there is mild decrease in the radioisotope uptake in a small portion of the inferoapical wall. Mild ischemia in this territory cannot be excluded]. Gated images reveal no significant regional wall motion abnormalities. The reported LVEF is 68%. Impression: 1. Mild ischemia involving a small portion of the inferoapical wall cannot be excluded. 2. Estimated ejection fraction is 68%. This note was generated with [employer] software. It may contain incorrect words, spelling, and punctuation that were not noted in checking the note before signing.
--- NOTE | 2021-01-20 15:08 | PCM.PROGNOTE ---
<ElenoMaria Eugenia BIRD RAISER - Last Filed: 01/20/21 15:12> Subjective: Patient seen and examined. States he had recurrence of chest tightness during stress test this morning. Denies further symptoms since that time. Stress test reported to be abnormal. - Physical Exam Vitals/I&O's: Vital Signs Temp Pulse Resp BP Pulse Ox 97.6 F L 55 L 18 134/74 H 98 01/20/21 14:00 01/20/21 15:00 01/20/21 14:00 01/20/21 14:00 01/20/21 14:00 Oxygen Delivery Method Room Air Weight: 308 lb 10.354 oz Body Mass Index (BMI) 41.8 Intake and Output for Last 24 Hours 01/18/21 01/19/21 01/20/21 23:59 23:59 23:59 Intake Total 110 / 110 Balance 110 / 110 General: Alert, Oriented x3, Cooperative HEENT: Atraumatic, PERRLA, EOMI, Normocephalic Neck: Supple, No JVD, Negative Carotid Bruits Lungs: Clear to auscultation, Normal air movement Cardiovascular: Regular rate, No murmurs Abdomen: Bowel Sounds Present, Soft, Non Tender Extremities: No clubbing, No cyanosis, No edema, Capillary Refill Less than 3 Seconds Skin: No rashes, No breakdown Musculoskeletal: No Tenderness to Palpation of Joints or Extremities Neurological: Cranial nerves II-XII grossly intact, Neuro grossly intact Psych/Mental Status: Normal Affect, Appropriate Laboratory Results 01/20/21 05:15: PT 26.5 H, INR 2.5 01/20/21 05:45: WBC 9.0, RBC 5.31, Hgb 14.4, Hct 46.0, MCV 86.6, MCH 27.1, MCHC 31.3 L, RDW Std Deviation 42.8, RDW Coeff of Bob 13.5, Plt Count 320, MPV 9.7, Immature Gran % (Auto) 0.600, Neut % (Auto) 59.6, Lymph % (Auto) 26.6, [place] % (Auto) 10.4 H, Eos % (Auto) 2.1, Baso % (Auto) 0.7, Absolute Neuts (auto) 5.4, Absolute Lymphs (auto) 2.40, Nucleated RBC % 0 01/20/21 05:45: Sodium 140, Potassium 3.9, Chloride 106, Carbon Dioxide 26.0, Anion Gap 8, BUN 21 H, Creatinine 0.94, Estim Creat Clear Calc 87.14, Est GFR (MDRD) Af Amer 104, Est GFR (MDRD) Non-Af 86, BUN/Creatinine Ratio 22.4 H, Glucose 105, Calcium 9.1, Magnesium 2.3, Troponin I < 0.015 01/20/21 08:25: Troponin I < 0.015 01/20/21 12:50: Troponin I < 0.015 Current Medications Acetaminophen (Acetaminophen 325 Mg Tablet) 650 mg PO Q6H PRN PRN PRN Reason: Pain Score 1-10/Temp > 100.7 F Al Hydroxide/Mg Hydroxide (Mag Hydrox/Al Hydrox/Simeth 30 Ml Udc) 30 ml PO Q6H PRN PRN PRN Reason: Gastric Burning Albuterol Sulfate (Albuterol 2.5 Mg/3 Ml Vial.Neb.) 2.5 mg INHALATION Q2H PRN PRN PRN Reason: Dyspnea, wheezing Albuterol/Ipratropium (Ipratropium/Albuterol Sulfate 3 Ml Ampul.Neb) 3 ml INHALATION Q6HWA.RT AMANUEL Aspirin (Aspirin E.C. 81 Mg Tablet) 81 mg PO DAILY@0800 [facility] Last Admin: 01/20/21 08:36 Dose: Not Given Documented by: Atorvastatin Calcium (Atorvastatin Calcium 20 Mg Tablet) 20 mg PO QHS AMANUEL Famotidine (Famotidine 20 Mg Tablet) 20 mg PO BID [facility] Last Admin: 01/20/21 08:37 Dose: Not Given Documented by: Fluticasone Propionate (Fluticasone 0.05% 1 [place] Nasal.Sry) 2 spray NASAL DAILY [facility] Last Admin: 01/20/21 08:37 Dose: Not Given Documented by: Guaifenesin (Guaifenesin 10 Ml Udc (200mg/10ml)) 20 ml PO Q4H PRN PRN PRN Reason: COUGH Hydralazine HCl (Hydralazine 20 Mg/Ml Vial) 10 mg IV Q4H PRN PRN PRN Reason: SBP > 160 Sodium Chloride () 1,000 mls @ 100 mls/hr IV .Q10H [facility] Last Infusion: 01/20/21 12:35 Dose: 100 mls/hr Documented by: Sodium Chloride () 250 mls @ 15 mls/hr IV .[id number] PRN PRN Reason: Saline Flush Sodium Chloride () 250 mls @ 15 mls/hr IV .[id number] PRN PRN Reason: Additional IVPB Infusion Latanoprost (Latanoprost 0.005% 1 Bottle) 1 drp RIGHT EYE QHS [facility] Magnesium Hydroxide (Magnesium Hydroxide 30 Ml Udc) 30 ml PO DAILY PRN PRN PRN Reason: Constipation Melatonin (Melatonin 3 Mg Tablet) 3 mg PO QHS PRN PRN PRN Reason: INSOMNIA Morphine Sulfate (Morphine 2 Mg/Ml Syringe) 2 mg IV Q3H PRN PRN PRN Reason: Pain Score 6-10 Nitroglycerin (Nitroglycerin (Inpatient Use) 0.4 Mg Tab.Subl) 0.4 mg SL Q5M PRN PRN Reason: CARDIAC/CHEST PAIN Ondansetron HCl (Ondansetron 4 Mg/2 Ml Vial) 4 mg IV Q8H PRN PRN PRN Reason: NAUSEA/VOMITING Oxycodone HCl (Oxycodone 5 Mg Tablet) 5 mg PO Q4H PRN PRN PRN Reason: Pain Score 4-5 Prochlorperazine Edisylate (Prochlorperazine 10 Mg/2 Ml Vial) 5 mg IV Q4H PRN PRN PRN Reason: Breakthrough Nausea/Vomiting Psyllium Hydrophilic Mucilloid (Psyllium 1 Packet) 1 packet PO DAILY PRN PRN PRN Reason: Constipation Senna/Docusate Sodium (Senna/Docusate Sodium 1 Tablet) 2 tablet PO BID PRN PRN PRN Reason: Constipation Sodium Chloride (0.9% Saline Lock 10 Ml Syringe) 10 - 40 ml IV UD PRN PRN Reason: SALINE FLUSH Sotalol HCl (Sotalol Hydrochloride 80 Mg Tablet) 120 mg PO BID [facility] Last Admin: 01/20/21 08:37 Dose: Not Given Documented by: Throat Lozenges (Benzocaine/Menthol 1 Lozenge) 1 lozenge MUCOUS MEM Q2H PRN PRN PRN Reason: SORE THROAT Warfarin Sodium (Warfarin 7.5 Mg Tablet) 7.5 mg PO DAILY@1700 [facility] Medical Necessity - Tobacco Use Smoking Status: Former smoker Tobacco Use: Non-smoker Assessment/Plan All Active Problems (Last Updated 01/20/21 @ 17:12 by Kayla Degroot) Abnormal nuclear stress test (Acute) Atrial fibrillation with RVR (Resolved) 1. Chest pain, abnormal stress test-stress test read as possible inferoapical mild ischemia. Ejection fraction 68%. Troponin negative. Cardiology consult for further evaluation. 2. Hypertension-on sotalol. 3. Hyperlipidemia-continue statin. 4. Paroxysmal atrial fibrillation-history of ablation. On sotalol, Coumadin. 5. Morbid obesity-encouraged diet lifestyle modifications. 6. ARABELLA-continue CPAP. 7. Chronic asthma-as needed albuterol aerosol. 8. Former tobacco use-encouraged continued cessation. DVT prophylaxis- coumadin This patient was seen by REY Huston under the supervision of Dr. Nolan. <Beata Nolan - Last Filed: 01/20/21 21:46> - Physical Exam Vitals/I&O's: Vital Signs Temp Pulse Resp BP Pulse Ox 97.6 F L 55 L 18 134/74 H 98 01/20/21 14:00 01/20/21 15:00 01/20/21 14:00 01/20/21 14:00 01/20/21 14:00 Oxygen Delivery Method Room Air Weight: 308 lb 10.354 oz Body Mass Index (BMI) 41.8 Intake and Output for Last 24 Hours 01/18/21 01/19/21 01/20/21 23:59 23:59 23:59 Intake Total 385 / 385 Balance 385 / 385 Laboratory Results 01/20/21 05:15: PT 26.5 H, INR 2.5 01/20/21 05:45: WBC 9.0, RBC 5.31, Hgb 14.4, Hct 46.0, MCV 86.6, MCH 27.1, MCHC 31.3 L, RDW Std Deviation 42.8, RDW Coeff of Bob 13.5, Plt Count 320, MPV 9.7, Immature Gran % (Auto) 0.600, Neut % (Auto) 59.6, Lymph % (Auto) 26.6, [place] % (Auto) 10.4 H, Eos % (Auto) 2.1, Baso % (Auto) 0.7, Absolute Neuts (auto) 5.4, Absolute Lymphs (auto) 2.40, Nucleated RBC % 0 01/20/21 05:45: Sodium 140, Potassium 3.9, Chloride 106, Carbon Dioxide 26.0, Anion Gap 8, BUN 21 H, Creatinine 0.94, Estim Creat Clear Calc 87.14, Est GFR (MDRD) Af Amer 104, Est GFR (MDRD) Non-Af 86, BUN/Creatinine Ratio 22.4 H, Glucose 105, Calcium 9.1, Magnesium 2.3, Troponin I < 0.015 01/20/21 08:25: Troponin I < 0.015 01/20/21 12:50: Troponin I < 0.015 Assessment/Plan Patient seen by Maria Eugenia LE under my supervision Patient seen and examined. He was admitted with a complaint of chest pain. Troponins x 3 are negative. HE is due for stress test today. Patient had no complaints. Chest pain hadnt recurred. Review of systems is otherwise negative Plan is for stress test today.Stress test done showed inferoapical mild ischemia, with EF of 68%. Cardiology was consultd, and patient opted to go home, in light of his lack of symptoms, and follow up with cardiology for outpatient cardiac cath. Patient was seen and examined. REst as per Maria Eugenia LE's note, which I have reviewed and endorsed. OBSV E&M: [id number] Subsequent observation care L2
--- NOTE | 2021-01-20 16:03 | PCM.CONS.C ---
Reason for Consult Date of Consultation: 01/20/21 Reason for Consultation: Chest pain, abnormal stress test History of Present Illness: The patient is a 65 year old M [with past medical history of atrial fibrillation status post ablation, followed by recurrence that was treated with sotalol, currently in sinus rhythm presenting to [facility] with chest pressure radiating to the back and left shoulder that woke him up from sleep. Patient was given nitroglycerin and aspirin in the emergency room which relieved his chest pain. He has not had any further episodes. He underwent stress testing today which revealed possible inferoapical ischemia. Patient denies any significant cardiac complaints at this time. Patient is on Coumadin with an INR of 2.5 presently. Review of systems: All systems reviewed. All else is negative except that in the HPI] Past Medical History Allergies/Adverse Reactions: Allergies No Known Allergies Allergy (Verified 01/20/21 05:39) Home Medications: Ambulatory Orders Medication Instructions Recorded Latanoprost 0.005% [Xalatan 1 drp EACH EYE QHS 08/10/14 Opthalmic] omeprazole 20 mg capsule,delayed 40 mg PO QDAY cap 01/15/20 release sotalol 120 mg tablet 120 mg PO BID #180 tab 01/15/20 albuterol sulfate 90 mcg/actuation 2 puff INHALATION Q6H PRN #18 g 01/27/20 aerosol inhaler fluticasone propionate 50 2 spray INTRANASAL QDAY #1 ea 01/27/20 mcg/actuation nasal spray,suspension fluticasone propionate 220 2 puff INHALATION BID #12 g 08/13/20 mcg/actuation HFA aerosol inhaler atorvastatin 20 mg tablet 20 mg PO QHS #90 tab 12/24/20 warfarin 5 mg tablet 7.5 mg PO QDAY #145 tab 12/24/20 Past Medical History (Chronic Problems): Chronic Problems (Last Reviewed 08/13/20 @ 10:11 by Palma Whiteside) Asthma (Chronic) PND (post-nasal drip) (Chronic) Obstructive sleep apnea (Chronic) History of radiofrequency ablation procedure for cardiac arrhythmia (Chronic) June [address] 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 Psychiatric History: No pertinent psych hx - *Family History Paternal Family History: Family History (Last Reviewed 08/13/20 @ 10:11 by Palma Whiteside) Father CAD (coronary artery disease) Myocardial infarction S/P CABG x 3, Onset Age: 38 Mother Cancer Hypertension Sister Cardiomyopathy Sister Atrial fibrillation Grandmother CVA (cerebral vascular accident) Grandfather Cancer History Items: High Cholesterol, Heart Disease, Hypertension Maternal Family History: Family History (Last Reviewed 08/13/20 @ 10:11 by Palma Whiteside) Father CAD (coronary artery disease) Myocardial infarction S/P CABG x 3, Onset Age: 38 Mother Cancer Hypertension Sister Cardiomyopathy Sister Atrial fibrillation Grandmother CVA (cerebral vascular accident) Grandfather Cancer History Items: Cancer, Heart Disease Lives: Spouse/ Significant Other Smoking Status: Former smoker Tobacco Use: Non-smoker Alcohol: Occasional Drugs: None Objective: Vital Signs Temp Pulse Resp BP Pulse Ox 97.6 F L 55 L 18 134/74 H 98 01/20/21 14:00 01/20/21 15:00 01/20/21 14:00 01/20/21 14:00 01/20/21 14:00 Oxygen Delivery Method Room Air Weight: 308 lb 10.354 oz Body Mass Index (BMI) 41.8 Intake and Output for Last 24 Hours 01/18/21 01/19/21 01/20/21 23:59 23:59 23:59 Intake Total 385 / 385 Balance 385 / 385 General: Awake, Alert, Oriented x 3 HEENT: Atraumatic Oral: Moist Mucosa Neck: Supple Lungs: Clear to auscultation Cardiovascular: Regular Rhythm Abdomen: Soft Extremities: No edema Skin: No Rashes Psych/Mental Status: Appropriate 01/20/21 05:15: PT 26.5 H, INR 2.5 01/20/21 05:45: WBC 9.0, RBC 5.31, Hgb 14.4, Hct 46.0, MCV 86.6, MCH 27.1, MCHC 31.3 L, Plt Count 320, MPV 9.7, Immature Gran % (Auto) 0.600, Neut % (Auto) 59.6, Lymph % (Auto) 26.6, [place] % (Auto) 10.4 H, Eos % (Auto) 2.1, Baso % (Auto) 0.7, Absolute Neuts (auto) 5.4, Nucleated RBC % 0 01/20/21 05:45: Sodium 140, Potassium 3.9, Chloride 106, Carbon Dioxide 26.0, Anion Gap 8, BUN 21 H, Creatinine 0.94, Est GFR (MDRD) Af Amer 104, Est GFR (MDRD) Non-Af 86, BUN/Creatinine Ratio 22.4 H, Glucose 105, Calcium 9.1, Magnesium 2.3, Troponin I < 0.015 01/20/21 08:25: Troponin I < 0.015 01/20/21 12:50: Troponin I < 0.015 Rhythm: EKG: ECHO: Stress Test: Cardiac Cath: PCI: CT Surgery: Holter monitor: EPS: PPM: CXR: Chest CT Scan: Assessment/Plan 1. Chest pain: Patient had a stress test which showed possible inferoapical ischemia. EF was preserved. Patient is on Coumadin. It would be reasonable to proceed with coronary angiography. Discussed keeping the patient here till his INR is low enough for coronary angiography versus doing the angiogram as an outpatient. I think will be reasonable to discharge the patient home with Coumadin being on hold and proceeding with coronary angiography after 5 days of being off Coumadin. Patient does not have any high risk features at this time. He was advised to come back to the hospital if he has any further chest pain episodes. Patient understands the risks and benefits and is agreeable to this plan.
--- NOTE | 2021-01-20 16:42 | DCINST_ITS ---
- Discharge Diagnoses Current Active Problems: Current Active and Chronic Problems (Last Reviewed 08/13/20 @ 10:11 by Palma Whiteside) Chest pain (Acute) Asthma (Chronic) Morbid obesity (Chronic) Hyperlipidemia (Chronic) Glaucoma (Chronic) Atrial fibrillation and flutter (Chronic) Hypertension (Chronic) Sleep apnea (Chronic) You will use the following diet at home:: Cardiac Discharge Activity: Return to Normal Activity Call your doctor if you observe: Shortness of breath, Dizziness, Chest pain Additional Instructions: If you have recurrence of chest pain, you will need to return to the emergency room. Dr. Green's Nurse (cardiology) will call you tomorrow to set up outpatient cardiac catheterization. HOLD COUMADIN day of discharge, 01/20/2021 until notified to resume following cath by cardiology. Allergies/Adverse Reactions: Allergies No Known Allergies Allergy (Verified 01/20/21 05:39) Medications to take at Discharge Latanoprost 0.005% [Xalatan Opthalmic] 1 drp EACH EYE QHS 08/10/14 omeprazole 20 mg capsule,delayed release 40 mg PO QDAY cap 01/15/20 sotalol 120 mg tablet 120 mg PO BID #180 tab 01/15/20 albuterol sulfate 90 mcg/actuation aerosol inhaler 2 puff INHALATION Q6H PRN #18 g 01/27/20 fluticasone propionate 50 mcg/actuation nasal spray,suspension 2 spray INTRANASAL QDAY #1 ea 01/27/20 fluticasone propionate 220 mcg/actuation HFA aerosol inhaler 2 puff INHALATION BID #12 g 08/13/20 atorvastatin 20 mg tablet 20 mg PO QHS #90 tab 12/24/20 warfarin 5 mg tablet 7.5 mg PO QDAY #145 tab 12/24/20 Primary Care Physician: Marie Marquis MD [Primary Care Provider] - Please follow up with your Primary Care Physician in: 1 Week Test Results: Test results from this visit will be discussed in further detail at your follow- up appointment, if applicable. Please Follow Up With: Eris Green MD When: Office to call you tomorrow to set up heart cath Proposed Discharge Date: 01/20/21
--- NOTE | 2021-01-20 16:45 | DS.PCM_ITS ---
<Maria Eugenia Johansen GUM ROLLING MACHINE TENDER - Last Filed: 01/20/21 16:49> Discharge Date and Diagnosis Date of Admission: 01/20/21 Date of Discharge: 01/20/21 - Primary Discharge Diagnosis Acute Problems: Active Problems (Last Reviewed 08/13/20 @ 10:11 by Palma Whiteside) 1. Chest pain, abnormal stress test-ACS ruled out 2. Hypertension 3. Hyperlipidemia 4. Paroxysmal atrial fibrillation 5. Morbid obesity 6. ARABELLA 7. Chronic asthma 8. Former tobacco use - Secondary Discharge Diagnosis Chronic Problems: Chronic Problems (Last Reviewed 08/13/20 @ 10:11 by Palma Whiteside) Asthma (Chronic) PND (post-nasal drip) (Chronic) Obstructive sleep apnea (Chronic) History of radiofrequency ablation procedure for cardiac arrhythmia (Chronic) June [address] Matos at [facility] : atrial flutter/fib ablation Atrial flutter (Chronic) Dyspnea on exertion (Chronic) Paroxysmal atrial fibrillation (Chronic) Shortness of breath (Chronic) History of Coumadin therapy (Chronic) lobsterman current use of anticoagulant (Chronic) Morbid obesity (Chronic) Hyperlipidemia (Chronic) Glaucoma (Chronic) Atrial fibrillation and flutter (Chronic) Hypertension (Chronic) Sleep apnea (Chronic) Hospital Course and Treatment Imaging Results: Diagnostic Data Chest X-Ray 01/20/21 05:48 IMPRESSION: Negative x-ray examination of the chest. No interval change. Electronically Signed: Chandler Gonzalez MD at 6:19 EDT Tel , Service support , Dr. Cole- Cardiology Operations: None Procedures: Stress test Summary of Care Provided: The patient is a 65 year old M admitted 01/20/2021 due to chest pain. 1. Chest pain, abnormal stress test-stress test read as possible inferoapical mild ischemia. Ejection fraction 68%. Troponin negative. Cardiology consult for further evaluation. Patient ambulated in hallway without recurrence of chest pain. Plan for discharge home with outpatient cath next week after Coumadin has been held for 5 days. Cardiology to contact patient tomorrow to schedule heart cath. Instructed patient on warning signs and symptoms and when to seek immediate medical attention. Coumadin held at discharge. 2. Hypertension-on sotalol. 3. Hyperlipidemia-continue statin. 4. Paroxysmal atrial fibrillation-history of ablation. On sotalol, Coumadin. Coumadin held at discharge as noted above. 5. Morbid obesity-encouraged diet lifestyle modifications. 6. ARABELLA-continue CPAP. 7. Chronic asthma-as needed albuterol aerosol. 8. Former tobacco use-encouraged continued cessation. General: Alert, Oriented x3, Cooperative HEENT: Atraumatic, PERRLA, EOMI, Normocephalic Neck: Supple, No JVD, Negative Carotid Bruits Lungs: Clear to auscultation, Normal air movement Cardiovascular: Regular rate, No murmurs Abdomen: Bowel Sounds Present, Soft, Non Tender Extremities: No clubbing, No cyanosis, No edema, Capillary Refill Less than 3 Seconds Skin: No rashes, No breakdown Musculoskeletal: No Tenderness to Palpation of Joints or Extremities Neurological: Cranial nerves II-XII grossly intact, Neuro grossly intact Psych/Mental Status: Normal Affect, Appropriate Patient seen and examined prior to discharge. Physical assessment as noted above. Patient is stable for discharge with follow up recommendations as noted above. This patient was seen by REY Huston under the supervision of Dr. Nixon boyd. - Physical Exam Vitals/I&O's: Vital Signs Temp Pulse Resp BP Pulse Ox 97.6 F L 55 L 18 134/74 H 98 01/20/21 14:00 01/20/21 15:00 01/20/21 14:00 01/20/21 14:00 01/20/21 14:00 Oxygen Delivery Method Room Air Weight: 308 lb 10.354 oz Body Mass Index (BMI) 41.8 Intake and Output for Last 24 Hours 01/18/21 01/19/21 01/20/21 23:59 23:59 23:59 Intake Total 385 / 385 Balance 385 / 385 Laboratory Results 01/20/21 05:15: PT 26.5 H, INR 2.5 01/20/21 05:45: WBC 9.0, RBC 5.31, Hgb 14.4, Hct 46.0, MCV 86.6, MCH 27.1, MCHC 31.3 L, RDW Std Deviation 42.8, RDW Coeff of Bob 13.5, Plt Count 320, MPV 9.7, Immature Gran % (Auto) 0.600, Neut % (Auto) 59.6, Lymph % (Auto) 26.6, Simpson % (Auto) 10.4 H, Eos % (Auto) 2.1, Baso % (Auto) 0.7, Absolute Neuts (auto) 5.4, Absolute Lymphs (auto) 2.40, Nucleated RBC % 0 01/20/21 05:45: Sodium 140, Potassium 3.9, Chloride 106, Carbon Dioxide 26.0, Anion Gap 8, BUN 21 H, Creatinine 0.94, Estim Creat Clear Calc 87.14, Est GFR (MDRD) Af Amer 104, Est GFR (MDRD) Non-Af 86, BUN/Creatinine Ratio 22.4 H, Glucose 105, Calcium 9.1, Magnesium 2.3, Troponin I < 0.015 01/20/21 08:25: Troponin I < 0.015 01/20/21 12:50: Troponin I < 0.015 Current Medications Acetaminophen (Acetaminophen 325 Mg Tablet) 650 mg PO Q6H PRN PRN PRN Reason: Pain Score 1-10/Temp > 100.7 F Al Hydroxide/Mg Hydroxide (Mag Hydrox/Al Hydrox/Simeth 30 Ml Udc) 30 ml PO Q6H PRN PRN PRN Reason: Gastric Burning Albuterol Sulfate (Albuterol 2.5 Mg/3 Ml Vial.Neb.) 2.5 mg INHALATION Q2H PRN PRN PRN Reason: Dyspnea, wheezing Albuterol/Ipratropium (Ipratropium/Albuterol Sulfate 3 Ml Ampul.Neb) 3 ml INHALATION Q6HWA.RT [facility] Aspirin (Aspirin E.C. 81 Mg Tablet) 81 mg PO DAILY@0800 [facility] Last Admin: 01/20/21 08:36 Dose: Not Given Documented by: Atorvastatin Calcium (Atorvastatin Calcium 20 Mg Tablet) 20 mg PO DAILY [facility] Famotidine (Famotidine 20 Mg Tablet) 20 mg PO BID [facility] Last Admin: 01/20/21 08:37 Dose: Not Given Documented by: Fluticasone Propionate (Fluticasone 0.05% 1 [place] Nasal.Sry) 2 spray NASAL DAILY [facility] Last Admin: 01/20/21 08:37 Dose: Not Given Documented by: Guaifenesin (Guaifenesin 10 Ml Udc (200mg/10ml)) 20 ml PO Q4H PRN PRN PRN Reason: COUGH Hydralazine HCl (Hydralazine 20 Mg/Ml Vial) 10 mg IV Q4H PRN PRN PRN Reason: SBP > 160 Sodium Chloride () 250 mls @ 15 mls/hr IV .[id number] PRN PRN Reason: Saline Flush Sodium Chloride () 250 mls @ 15 mls/hr IV .[id number] PRN PRN Reason: Additional IVPB Infusion Latanoprost (Latanoprost 0.005% 1 Bottle) 1 drp RIGHT EYE QHS AMANUEL Magnesium Hydroxide (Magnesium Hydroxide 30 Ml Udc) 30 ml PO DAILY PRN PRN PRN Reason: Constipation Melatonin (Melatonin 3 Mg Tablet) 3 mg PO QHS PRN PRN PRN Reason: INSOMNIA Morphine Sulfate (Morphine 2 Mg/Ml Syringe) 2 mg IV Q3H PRN PRN PRN Reason: Pain Score 6-10 Nitroglycerin (Nitroglycerin (Inpatient Use) 0.4 Mg Tab.Subl) 0.4 mg SL Q5M PRN PRN Reason: CARDIAC/CHEST PAIN Ondansetron HCl (Ondansetron 4 Mg/2 Ml Vial) 4 mg IV Q8H PRN PRN PRN Reason: NAUSEA/VOMITING Oxycodone HCl (Oxycodone 5 Mg Tablet) 5 mg PO Q4H PRN PRN PRN Reason: Pain Score 4-5 Prochlorperazine Edisylate (Prochlorperazine 10 Mg/2 Ml Vial) 5 mg IV Q4H PRN PRN PRN Reason: Breakthrough Nausea/Vomiting Psyllium Hydrophilic Mucilloid (Psyllium 1 Packet) 1 packet PO DAILY PRN PRN PRN Reason: Constipation Senna/Docusate Sodium (Senna/Docusate Sodium 1 Tablet) 2 tablet PO BID PRN PRN PRN Reason: Constipation Sodium Chloride (0.9% Saline Lock 10 Ml Syringe) 10 - 40 ml IV UD PRN PRN Reason: SALINE FLUSH Sotalol HCl (Sotalol Hydrochloride 80 Mg Tablet) 120 mg PO BID [facility] Last Admin: 01/20/21 08:37 Dose: Not Given Documented by: Throat Lozenges (Benzocaine/Menthol 1 Lozenge) 1 lozenge MUCOUS MEM Q2H PRN PRN PRN Reason: SORE THROAT Warfarin Sodium (Warfarin 7.5 Mg Tablet) 7.5 mg PO DAILY@1700 [facility] Last Admin: 01/20/21 15:53 Dose: Not Given Documented by: Discharge Diet: Low fat/ Low Cholesterol Discharge Activity: Return to Normal Activity Call your doctor if you observe: Shortness of breath, Dizziness, Chest pain Home Medications: Medications to take at Discharge Latanoprost 0.005% [Xalatan Opthalmic] 1 drp EACH EYE QHS 08/10/14 omeprazole 20 mg capsule,delayed release 40 mg PO QDAY cap 01/15/20 sotalol 120 mg tablet 120 mg PO BID #180 tab 01/15/20 albuterol sulfate 90 mcg/actuation aerosol inhaler 2 puff INHALATION Q6H PRN #18 g 01/27/20 fluticasone propionate 50 mcg/actuation nasal spray,suspension 2 spray INTRANASAL QDAY #1 ea 01/27/20 fluticasone propionate 220 mcg/actuation HFA aerosol inhaler 2 puff INHALATION BID #12 g 08/13/20 atorvastatin 20 mg tablet 20 mg PO QHS #90 tab 12/24/20 warfarin 5 mg tablet 7.5 mg PO QDAY #145 tablet 12/24/20 aspirin 81 mg tablet,delayed release 81 mg PO DAILY 01/20/21 Primary Care Physician: Marie Marquis MD [Primary Care Provider] - Please follow up with your Primary Care Physician in: 1 Week Please Follow Up With: Eris Green MD When: Office to call you tomorrow to set up heart cath Disposition: Home Minutes spent on discharge:: 35 Patient Condition:: Stable Medical Necessity - Tobacco Use Smoking Status: Former smoker Tobacco Use: Non-smoker Meaningful Use Info Meaningful Use Diagnoses (Choose all that apply): None applicable <Beata Nolan - Last Filed: 01/20/21 17:43> Discharge Date and Diagnosis - Secondary Discharge Diagnosis Chronic Problems: Chronic Problems (Last Updated 01/20/21 @ 17:12 by Kayla Degroot) Chest pain (Chronic) Dyspnea on exertion (Chronic) Paroxysmal atrial fibrillation (Chronic) Atrial fibrillation and flutter (Chronic) RFA atrial flutter/fib ablation 06/2017 Essential (primary) hypertension (Chronic) Hyperlipidemia (Chronic) Obstructive sleep apnea (Chronic) lobsterman current use of anticoagulant (Chronic) Hospital Course and Treatment Summary of Care Provided: Patient seen by Maria Eugenia LE under my supervision The patient is a 65 year old M with a past medical history as outlined who was admitted through the ED on 01/20/2021 with a complaint of chest pain. Troponins x3 were negative and EKG showed no acute ST changes. Stress test done was abno rmal and showed possible inferior apical ischemia. Patient had no significant cardiac complaints while he was in the hospital and chest pain did not recur. Cardiology was consulted. Per cardiology note, EF was preserved and patient was on Coumadin. Patient's INR was 2.5 and cardiology discussed with patient about keeping him in the hospital to his INR was low enough for coronary angiography versus doing it on outpatient basis. Per discussion the cardiology had with patient, patient opted to go home to hold the Coumadin for 5 days and to proceed with coronary angiography after that. [place] office will call patient to schedule Coumadin. Patient was advised to come back to the hospital if he had any further chest pain before the heart cath was scheduled. He remained stable and was discharged home on 01/20/2021. He is to follow-up with his primary care doctor and cardiology as scheduled. Patient seen and examined prior to discharge. He had no complaints and felt well. Review of symptoms otherwise negative. Labs and vitals reviewed. Medication reviewed and reconciled. O/E: Vital Signs Temp Pulse Resp BP Pulse Ox 97.6 F L 55 L 18 134/74 H 98 01/20/21 14:00 01/20/21 15:00 01/20/21 14:00 01/20/21 14:00 01/20/21 14:00 General: Alert, Oriented x3, Cooperative HEENT: Atraumatic, PERRLA, EOMI, Normocephalic Neck: Supple, No JVD, Negative Carotid Bruits Lungs: Clear to auscultation, Normal air movement Cardiovascular: Regular rate, No murmurs Abdomen: Bowel Sounds Present, Soft, Non Tender Extremities: No clubbing, No cyanosis, No edema, Capillary Refill Less than 3 Seconds Skin: No rashes, No breakdown Musculoskeletal: No Tenderness to Palpation of Joints or Extremities Neurological: Cranial nerves II-XII grossly intact, Neuro grossly intact Psych/Mental Status: Normal Affect, Appropriate Plan is for discharge home today. Rest as per Maria Eugenia Eleno GUM ROLLING MACHINE TENDER-C's note, which I have reviewed and endorsed. - Physical Exam Vitals/I&O's: Vital Signs Temp Pulse Resp BP Pulse Ox 97.6 F L 55 L 18 134/74 H 98 01/20/21 14:00 01/20/21 15:00 01/20/21 14:00 01/20/21 14:00 01/20/21 14:00 Oxygen Delivery Method Room Air Weight: 308 lb 10.354 oz Body Mass Index (BMI) 41.8 Intake and Output for Last 24 Hours 01/18/21 01/19/21 01/20/21 23:59 23:59 23:59 Intake Total 385 / 385 Balance 385 / 385 Laboratory Results 01/20/21 05:15: PT 26.5 H, INR 2.5 01/20/21 05:45: WBC 9.0, RBC 5.31, Hgb 14.4, Hct 46.0, MCV 86.6, MCH 27.1, MCHC 31.3 L, RDW Std Deviation 42.8, RDW Coeff of Bob 13.5, Plt Count 320, MPV 9.7, Immature Gran % (Auto) 0.600, Neut % (Auto) 59.6, Lymph % (Auto) 26.6, Simpson % (Auto) 10.4 H, Eos % (Auto) 2.1, Baso % (Auto) 0.7, Absolute Neuts (auto) 5.4, Absolute Lymphs (auto) 2.40, Nucleated RBC % 0 01/20/21 05:45: Sodium 140, Potassium 3.9, Chloride 106, Carbon Dioxide 26.0, Anion Gap 8, BUN 21 H, Creatinine 0.94, Estim Creat Clear Calc 87.14, Est GFR (MDRD) Af Amer 104, Est GFR (MDRD) Non-Af 86, BUN/Creatinine Ratio 22.4 H, Glucose 105, Calcium 9.1, Magnesium 2.3, Troponin I < 0.015 01/20/21 08:25: Troponin I < 0.015 01/20/21 12:50: Troponin I < 0.015 OBSV E&M: [id number] Observ/hosp same date L2
--- NOTE | 2021-01-20 16:50 | PCM.WORK.EX ---
Work/School Excuse Work/School Excuse for:: Patient Please excuse this person from:: Work From: 01/20/21 through: 01/26/21 - Until cleared by cardiology
== END 2021-01-20 16:43 | disposition home or self-care (01) ==
LOC: ED 06:23 → PCU 06:33
PROVIDERS: Admitting Provider Family Medicine; Emergency Provider Emergency Medicine; PCP Internal Medicine; Visit Provider Student in an Organized Health Care Education/Training Program
DX: R07.89 Other chest pain (principal); R94.39 Abnormal result of other cardiovascular function study; I10 Essential (primary) hypertension; E78.5 Hyperlipidemia, unspecified; I48.0 Paroxysmal atrial fibrillation; E66.01 Morbid (severe) obesity due to excess calories; G47.33 Obstructive sleep apnea (adult) (pediatric); J45.909 Unspecified asthma, uncomplicated; Z87.891 Personal history of nicotine dependence; Z68.41 Body mass index [BMI] 40.0-44.9, adult; Z23 Encounter for immunization; Z79.899 Other long term (current) drug therapy; Z79.01 Long term (current) use of anticoagulants; Z79.51 Long term (current) use of inhaled steroids
CPT/HCPCS: 36415; 71045; 78452; 80048; 83735; 84484; 85025; 85610; 93005; 93017; 96360; 96361; 99218; 99283; A9500; J7030; 90686; A4216; G0378; J2785

== ENCOUNTER 2021-01-24 10:31 | Day surgery (SDC) | payer OTHER, SELFPAY ==
[2021-01-20 08:06] VITALS: BMI 41.8
[2021-01-21 12:21] VITALS: BMI 41.8
[2021-01-24 10:50] LABS: INR Fingerstick 1.2; Prothrombin Time Fingerstick 14.7 SEC (11.9-14.4)
--- NOTE | 2021-01-24 12:09 | CL.D_ITS ---
Patient Name: HAYDE GARCÍA Study Date: 01/24/2021 Performing: Eris Green MD Ht: 70.86 inches 180 cm : 1955 Wt: 299.83 lbs 136 kg Age: 65 Gender: male BSA: 2.5 PROCEDURE(S) PERFORMED [id number]/COR/LV CLINICAL PROFILE AND INDICATIONS Indications: Suspected CAD Heart Failure: None Stress/Imaging Date: 01/21/20tress Test with SPECT MPI: Indeterminant CAD Presentations: Symptom unlikely to be ischemic. CONCLUSIONS Moderate mid segment right coronary artery disease. RECOMMENDATIONS Medical therapy DESCRIPTION OF PROCEDURE The patient arrived to the procedure lab. The risks and benefits of the procedure as well as a full d escription of our services here and current unavailability of surgical backup were fully explained to the patient and/or their significant other prior to the catheterization. The Timeout was completed, verifying the correct patient and procedure. The patient's procedural site was prepped and draped in the usual fashion. Local anesthetic was given subcutaneously to right radial region with Lidocaine 2% . Using a modified Seldinger technique, arterial access was obtained via the right radial artery, a 6 Fr sheath was inserted. Left Coronary Artery selective angiography was performed in multiple views u sing a 5 Fr. 4.0 [place] catheter. Right Coronary Artery selective angiography was then performed in mu ltiple views using a 5 Fr. 4.0 [place] catheter. Left Ventriculography was performed in BAILEY projection using a 5 Fr. Pigtail catheter. LV to AO pullback pressures were then recorded.The arterial sheath was pulled and a TR Band was applied for hemostasis CORONARY ANGIOGRAPHY DOMINANCE: Right Dominant LEFT HEART ASSESSMENT Left Ventricular Ejection Fraction: by LV Gram 60 % Normal LV wall motion Normal Left Ventricular systolic function LEFT MAIN: Angiographically normal LEFT ANTERIOR DESCENDING ARTERY: No significant disease noted CIRCUMFLEX ARTERY: No significant disease noted RIGHT CORONARY ARTERY: MID RCA: 50 % Stenosis COMPLICATIONS No Complications PROCEDURE MEDICATIONS Fentanyl 50 mcg IV Versed 1 mg IV Oxygen: 2 L/min via nasal cannula Heparin diluted in 23cc Heparinized saline. Patient given 10cc IA of this solution. 01/24/2021 11:45: 07 Verapamil 2.5mg, Ntg 100mcgs, 2000 units of Heparin diluted in 23cc Heparinized saline. Patient give n 10cc IA of this solution. 01/24/2021 11:45:07 SUMMARY OF HEMODYNAMIC DATA Time AIR REST ECG 11:06:35 AO 135/82 (106) SA 11:48:32 LV 134/15, 28 11:56:30 LV 138/16, 28 11:56:37 LV 134/16, 30 11:57:56 LV 137/16, 29 11:58:02 LVp 138/21, 32 11:58:08 AOp 140/79 (105) 11:58:13 12:05:16 Signed By Eris Green MD On 01/24/2021 12:08:59 PM Eris Green MD
--- NOTE | 2021-03-25 10:17 | PCM.HP.BLA ---
History and Physical Date of Admission: 01/24/21 KARL GARCÍA, is a 65 M who presents to the Classification Officer for a heart catheterization. He is a gentleman with a history of atrial fibrillation/flutter, obstructive sleep apnea with CPAP therapy, and hyperlipidemia who initially had an ablation done in September 2016. He was noted to have a left atrial appendage clot and that was deferred. He was put on anticoagulation and eventually had an ablation on 07/13/2017. He presented back to the hospital in July 2017 with atrial fibrillation with rapid ventricular response rate. He had been put on sotalol as well as Coumadin. He was admitted to hospital in December 2020 with chest pain. He underwent a stress test on 01/20/2021 showing mild ischemia involving a small portion of the inferoapical wall cannot be excluded. He was discharged for outpatient heart catheterization after holding Coumadin for 5 days. Pt denies chest, arm, jaw, or neck discomfort. His exercise tolerance is stable is reduced. Pt denies symptoms of CHF, lightheadedness, dizziness, near syncopal or syncopal episodes. Pt denies edema or claudication issues. Pt. denies orthopnea, PND, myalgia, or unexplainable fatigue. Intake Vital Signs: See EMR Intake Visit Reasons: [facility] Payroll And Benefits Specialist Required: No Is patient in pain?: No Allergies No Known Allergies Allergy (Verified 10/13/20 16:00) Medications See EMR [facility] Medical History Obesity (Acute) Obstructive sleep apnea (Chronic) Atrial flutter (Chronic) Paroxysmal atrial fibrillation (Chronic) History of Coumadin therapy (Chronic) watermaster current use of anticoagulant (Chronic) Atrial fibrillation with RVR (Acute) Morbid obesity (Chronic) Hyperlipidemia (Chronic) Glaucoma (Chronic) Atrial fibrillation and flutter (Acute) Hypertension (Chronic) Sleep apnea (Chronic) Surgical History History of radiofrequency ablation procedure for cardiac arrhythmia (Chronic) Family History Father , age 60 from [place] CAD (coronary artery disease) Myocardial infarction S/P CABG x 3, Onset Age: 38 Mother Cancer Lung cancer Hypertension Sister Cardiomyopathy Sister Atrial fibrillation Grandmother CVA (cerebral vascular accident) Grandfather Cancer stomach cancer Social History (Updated 10/13/20 @ 16:43 by Karl Noriega EQUITY RESEARCH ASSOCIATE, EQUITY RESEARCH ASSOCIATE-C) Smoking Status: Former smoker Tobacco: How many years used: 35 how long ago did patient quit smokin04/2006 alcohol intake: current alcohol intake frequency: a few times a month Alcohol type: beer substance use type: does not use caffeine: Yes what type of physical activity do you participate in: none ROS Const Const: Negative for fatigue, weakness, body ache, fever(s) or chills ENT ENT: Negative for dizziness or Nosebleed/epistaxis Cardio Chest Pain: No Palpitations: No Edema: None Muscle aches with walking: None Resp Respiratory: Negative for SOB with activity, SOB at rest, SOB orthopnea\SOB lying down, Cough or paroxysmal nocturnal dyspnea GI GI: Negative nausea, vomiting blood/hematemesis, bright, red blood in stools or black,tarry stools : Negative for hematuria or frequent nighttime urination/ nocturia Musc Musc: Negative for muscle aches/ myalgia Skin Skin: Negative non-healing lesions or rash Neuro Neuro: Negative for dizziness, lightheadedness, near syncope, syncope, orthostatic symptoms or weakness Endo Endo: Negative for fatigue Allergy Allergy/Immunology: Negative for rash Cardiology Exam Const Appearance: cooperative, healthy appearing, comfortable and no acute distress Nutritional Appearance: well nourished and obese Orientation: alert, awake and oriented x3 Head Head: normal to inspection Ears: hearing grossly normal bilaterally Nose: external nose normal Face and Sinus: face symmetric Mouth: oral mucosae normal Eyes General: appearance normal, both eyes and all related structures Eyelids: eyelids normal EOM: EOM intact bilaterally Neck Neck: normal visual inspection and no JVD Carotids: normal carotid upstroke Chest Chest inspection: normal inspection of the chest, symmetric chest movement and normal respiratory effort; negative cough Auscultation: Bilateral: Clear to Auscultation Cardio Rate: regular rate Rhythm: regular rhythm Heart sounds: S1 normal and S2 normal; negative rub, gallop or murmur GI GI: normal to inspection and obese Neuro General: alert, awake, oriented x3 and CN's II-XI intact bilaterally Skin Skin: no rashes or lesions noted Extremities Pulses: Normal: Right Posterior Tibial Pulse, Left Posterior Tibial Pulse, Right Radial Pulse, Left Radial Pulse Lower Extremity Edema: None: Bilateral Psych Psychological: normal affect Assessment & Plan 1. Paroxysmal atrial fibrillation I48.0 Plan His twelve-lead EKG on 01/20/2021 shows sinus bradycardia rate of 57 bpm. He continue sotalol therapy for rate and rhythm control. He will continue warfarin therapy maintaining an INR goal of 2?3. 2. History of radiofrequency ablation procedure for cardiac arrhythmia Z98.[address] Matos at [facility] : atrial flutter/fib ablation Plan He will continue current medical therapy. 3. Essential hypertension I10 Plan Patient's blood pressure is well-controlled. We will continue to monitor. We will not make any medication regimen changes. 4. Pure hypercholesterolemia E78.00 Plan This is managed with primary care physician. He will continue current statin medication. 5. Abnormal Stress Test Plan On account of recent abnormal stress test, patient will proceed with heart catheterization. Based on results, further recommendation will be made. Plan Detail Additional Comments Thank you for allowing us to participate in the patients plan of care, if you have any questions please do not hesitate to call. This note was generated using a voice recognition system and there may be incorrect words, spelling or punctuation that were not noted when reviewing the office note prior to saving. The surgeon/proceduralist and patient have discussed in detail the risk of exposure to and/or potential harm posed by the COVID-19 virus with having a surgery/procedure at this time versus the risk of? delaying the surgery/procedure. It is not possible to know either the risk of delaying the surgery or procedure or chance of getting an infection with perfect accuracy, but a joint decision was made between the patient and the surgeon/proceduralist ?to proceed at this time with the scheduled surgery/procedure as indicated on the consent form.
== END 2021-01-24 13:45 | disposition home or self-care (01) ==
PROVIDERS: PCP Internal Medicine; Referring Provider Internal Medicine Cardiovascular Disease; Visit Provider Internal Medicine Cardiovascular Disease
DX: I25.10 Atherosclerotic heart disease of native coronary artery without angina pectoris (principal); R94.39 Abnormal result of other cardiovascular function study; I48.0 Paroxysmal atrial fibrillation; I10 Essential (primary) hypertension; E78.00 Pure hypercholesterolemia, unspecified; E66.01 Morbid (severe) obesity due to excess calories; Z79.01 Long term (current) use of anticoagulants; Z87.891 Personal history of nicotine dependence
CPT/HCPCS: 36416; 85610; 93458; 99152; 99153; J7040; Q9967; C1769; C1894

== ENCOUNTER → 2021-04-01 | Outpatient (CLI) | payer OTHER, SELFPAY ==
[2021-01-21 12:21] VITALS: BMI 41.8
[2021-04-01 08:35] LABS: Lipase 108 U/L (73-393)
== END | disposition home or self-care (01) ==
LOC: LABSPEC 08:18
PROVIDERS: PCP Internal Medicine; Referring Provider Physician Assistant; Visit Provider Physician Assistant
DX: R11.10 Vomiting, unspecified (principal); R19.7 Diarrhea, unspecified
CPT/HCPCS: 83690

== ENCOUNTER 2021-05-06 08:59 | Outpatient (RCR) | payer OTHER, SELFPAY ==
[2021-01-21 12:21] VITALS: BMI 41.8
[2021-05-06 09:40] LABS: International Normalized Ratio 2.8; Prothrombin Time (Protime)PT. 28.5 SECONDS (11.7-14.9)
== END 2021-05-06 18:00 | disposition home or self-care (01) ==
LOC: LAB 08:59
PROVIDERS: Family Provider Internal Medicine; PCP Internal Medicine; Referring Provider Internal Medicine Cardiovascular Disease; Visit Provider Internal Medicine Cardiovascular Disease
DX: I48.0 Paroxysmal atrial fibrillation (principal); Z79.01 Long term (current) use of anticoagulants
CPT/HCPCS: 36415; 85610

== ENCOUNTER 2021-06-20 07:28 | Outpatient (RCR) | payer OTHER, SELFPAY ==
[2021-01-21 12:21] VITALS: BMI 41.8
[2021-06-20 08:58] LABS: International Normalized Ratio 1.3; Prothrombin Time (Protime)PT. 15.7 SECONDS (11.7-14.9)
== END 2021-06-20 18:00 | disposition home or self-care (01) ==
LOC: LAB 07:28
PROVIDERS: Family Provider Internal Medicine; PCP Internal Medicine; Referring Provider Internal Medicine Cardiovascular Disease; Visit Provider Internal Medicine Cardiovascular Disease
DX: I48.0 Paroxysmal atrial fibrillation (principal); Z79.01 Long term (current) use of anticoagulants
CPT/HCPCS: 36415; 85610

== ENCOUNTER 2021-07-05 15:29 | Outpatient (RCR) | payer OTHER, SELFPAY ==
[2021-06-28 19:48] VITALS: BMI 41.8
[2021-07-05 18:07] LABS: International Normalized Ratio 2.1; Prothrombin Time (Protime)PT. 22.4 SECONDS (11.7-14.9)
== END 2021-07-05 18:00 | disposition home or self-care (01) ==
LOC: LAB 15:29
PROVIDERS: Family Provider Internal Medicine; PCP Internal Medicine; Referring Provider Internal Medicine Cardiovascular Disease; Visit Provider Internal Medicine Cardiovascular Disease
DX: I48.0 Paroxysmal atrial fibrillation (principal); I48.92 Unspecified atrial flutter; Z79.01 Long term (current) use of anticoagulants
CPT/HCPCS: 36415; 85610

== ENCOUNTER 2021-07-19 08:04 | Emergency (ER) | payer OTHER, SELFPAY ==
[2021-07-19 08:06] VITALS: BP 129/56; PULSE 65; RESP 12; TEMP 36.8; O2SAT 98; BMI 44.9
[2021-07-19 08:10] VITALS: O2SAT 98
--- NOTE | 2021-07-19 08:15 | RAD_ITS ---
STUDY: X-RAY CHEST REASON FOR EXAM: Male, 65 years old. 2 hour history of shortness of breath. TECHNIQUE: Single AP portable view of the chest. COMPARISON: None. FINDINGS: EKG electrodes are seen. Mild increased markings are seen at the lung bases suggestive of bibasilar atelectasis. There is no demonstrated pleural abnormality. There is mild cardiac enlargement. Normal mediastinum and beka. Normal visualized pulmonary arteries. There is atherosclerotic tortuosity of the aortic arch and descending thoracic aorta. Normal visualized thoracic spine. Normal visualized ribs, clavicles, and shoulders. There is no demonstrated abnormality of the visualized soft tissue structures of the upper abdomen. RAD/Chest 1 View (Portable) IMPRESSION: Increased markings at the lung bases suggestive of bibasilar atelectasis. Electronically Signed: Terrance Branham MD at 9:12 EDT , Service support ,
[2021-07-19 08:17] VITALS: BP 129/56; PULSE 65; RESP 12; TEMP 36.8; O2SAT 98
--- NOTE | 2021-07-19 08:25 | EX.ED.VIS.UR ---
HPI HPI - URI History of Present Illness Chief Complaint: Shortness of Breath Informant: patient Onset/Context/Timing Onset: Days (Onset 4 days ago) Context: Sudden Onset Timing: Continuous Quality: Upper respiratory symptoms of cough and congestion Location: Upper respiratory Current Severity: Mild Maximum Severity: Moderate Worsened by: - (Dyspnea with activity); Not Worsened By Swallowing, Eating Solids and Drinking Liquids Relieved by: - (Nothing) Associated Symptoms Associated Symptoms: Positive for Nasal Congestion, Shortness of Breath and Productive Cough (White-colored sputum); Negative for Headache, Sinus Pressure, Myalgias, Nausea, Vomiting, Diarrhea, Chest Pain, Nonproductive cough and Hemoptysis Narrative Narrative: Is a 65-year-old male who presents with upper respiratory symptoms that started 4 days ago. A coworker has been out for 1 week. He is uncertain whether he was diagnosed with Covid or not. Patient complains of runny nose, congestion, sore throat and cough productive of white-colored sputum. He denies hemoptysis. He denies bruising easily. 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 He denies history of PE or DVT. He denies leg pain, swelling or discoloration. He denies orthopnea or PND. He denies fever or chills. He denies loss of taste or smell. Prior similar symptoms: Yes Recent Illness/Hospitalization: No ROS ROS ED Constitutional Constitutional ED: Denies chills, fever(s), subjective or sweats Eyes Eyes: Denies blurry vision, change in vision or diplopia ENT ENT ED: Reports rhinorrhea and sore throat; Denies ear pain Cardiovascular Cardiovascular: Denies chest pain, orthopnea, palpitations, paroxysmal nocturnal dyspnea or racing heartbeat Respiratory/Chest Respiratory/Chest: Reports cough, dyspnea, dyspnea on exertion and sputum; Denies orthopnea or paroxysmal nocturnal dyspnea Gastrointestinal Gastrointestinal: Denies abdominal pain, constipation, diarrhea, melena, nausea or vomiting Genitourinary Genitourinary ED: Denies dysuria, hematuria or urinary frequency Musculoskeletal Musculoskeletal: Denies arthralgias, myalgias or neck pain Integumentary Denies Abrasions or rash Neurologic Neurologic: Denies headache(s), paresthesias or weakness Endocrine Endocrinology: Denies polydipsia, polyphagia or polyuria Hematologic/Lymphatic Hematologic/Lymphatic: Denies easy bleeding or easy bruising PFSH PFS Medical History Asthma Atrial fibrillation and flutter Atrial fibrillation with RVR Essential (primary) hypertension Glaucoma 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 Morbid obesity Nonobstructive atherosclerosis of coronary artery Obstructive sleep apnea Paroxysmal atrial fibrillation PND (post-nasal drip) Home Medications latanoprost 1 drp EACH EYE QHS 08/10/14 [History Last Taken 01/19/21] omeprazole 20 mg capsule,delayed release 40 mg PO QDAY cap 01/15/20 [History Last Taken 01/20/21] albuterol sulfate 90 mcg/actuation aerosol inhaler 2 puff INHALATION Q6H PRN #18 g 01/27/20 [Rx Last Taken Unknown] fluticasone propionate 50 mcg/actuation nasal spray,suspension 2 spray INTRANASAL QDAY #1 ea 01/27/20 [Rx Last Taken 01/20/21] atorvastatin 20 mg tablet 20 mg PO QHS #90 tab 12/24/20 [Rx Last Taken 01/24/21] warfarin 5 mg tablet 7.5 mg PO QDAY #145 tablet 12/24/20 [Rx Last Taken 01/20/21] aspirin 81 mg tablet,delayed release 81 mg PO DAILY 01/20/21 [History Last Taken 01/24/21] sotalol 120 mg tablet 120 mg PO BID #180 tablet 02/21/21 [Rx Last Taken Unknown] fluticasone propionate 220 mcg/actuation HFA aerosol inhaler 2 puff INHALATION BID #12 g 04/25/21 [Rx Last Taken Unknown] Allergy/AdvReac Type Severity Reaction Status Date / Time No Known Allergies Allergy Verified 07/19/21 08:05 Family History Father , age 60 from [place] CAD (coronary artery disease) Myocardial infarction S/P CABG x 3, Onset Age: 38 Mother Cancer Lung cancer Hypertension Sister Cardiomyopathy Sister Atrial fibrillation Grandmother CVA (cerebral vascular accident) Grandfather Cancer stomach cancer Surgical History History of cardioversion (2015) History of left heart catheterization (01/24/21) History of radiofrequency ablation procedure for cardiac arrhythmia (06/2017) Social History (Updated 07/19/21 @ 08:[address] Graham Mcmahon MD) household members: spouse Smoking Status: Former smoker Tobacco: How many years used: 35 how long ago did patient quit smokin04/2006 alcohol intake: current alcohol intake frequency: a few times a month Alcohol type: beer substance use type: does not use caffeine: Yes what type of physical activity do you participate in: none EXAM Physical Exam Const Vital Signs: 07/19/21 08:06 07/19/21 08:10 07/19/21 08:17 Temperature 98.3 F 98.3 F Temperature Source Temporal Temporal Pulse Rate 65 65 Respiratory Rate 12 12 Respiratory Effort Short of Breath Labored Blood Pressure 129/56 H 129/56 H Blood Pressure Mean 80 80 Pulse Ox 98 98 Oxygen Delivery Method Room Air Room Air Room Air Positive well nourished, well developed and obese General Appearance ED: well developed and NAD; Negative for pallor Nutritional Appearance: obese HEENT normocephalic and atraumatic External Ear: external ears normal and no preauricular adenopathy Eyes PERRL and EOMs intact bilaterally General Eye ED: Negative for pale conjunctiva or scleral icterus Neck no lymphadenopathy, supple, no meningeal signs and no JVD General: Negative for anterior neck swelling Resp normal respiratory effort and clear to auscultation bilaterally Cardio S1 normal heart sound, S2 normal heart sound and no murmurs Rate: regular rate Rhythm: regular rhythm Bruits: Negative for carotid bruit or abdominal aortic bruit GI non-tender, non-distended and no masses Auscultation: normoactive bowel sounds Palpation: soft; Negative for tender Back/Spine no CVA tenderness General Back: Negative for CVA tenderness Extremity normal to inspection and full ROM General Extremety ED: Negative for cyanosis or tenderness General Extremity: Negative for cyanosis Neuro oriented x3 and CN's II-XII intact bilaterally Sensorium / Orientation: alert Psych mental status grossly normal Skin General Skin Exam: Negative for jaundice or pallor Lesions: no lesions Rashes: no rashes MDM MDM MDM Narrative Medical decision making narrative: Differential diagnosis would include pneumonia, viral upper respiratory infection and Covid. Chest x-ray and Covid test were obtained. Single view chest x-ray reveals limited inspiratory volume. There is atelectasis at the bases. There is no infiltrate or effusion noted. Cardiac silhouette size unremarkable. Osseous directions are unremarkable. Lab Data Attestation: I reviewed the patient's lab results. Labs: Rapid Covid test is negative. Radiography Diagnostic Testing: Radiology Impression Chest X-Ray 07/19/21 08:15 IMPRESSION: Increased markings at the lung bases suggestive of bibasilar atelectasis. Electronically Signed: Terrance Branham MD at 9:12 EDT , Service support , Rhythm Strip Rhythm Strip: Sinus Rhythm Rate: 68 Ectopy: None Discharge Plan Triage Chief Complaint: Shortness of Breath ED Provider: Graham Mcmahon Dx/Rx/DC Orders Clinical Impression: Acute bronchitis Instructions: Acute Bronchitis Prescriptions: No Action omeprazole 20 mg capsule,delayed release(DR/EC) 40 mg PO QDAY RF: 0 albuterol sulfate [ProAir HFA] 90 mcg/actuation HFA aerosol inhaler 2 puff INHALATION Q6H PRN (Reason: shortness of breath or wheezing) Qty: 18 RF: 6 fluticasone propionate [Flonase Allergy Relief] 50 mcg/actuation spray,suspension 2 spray intranasal QDAY Qty: 1 RF: 3 latanoprost 1 DROP bottle 1 drp EACH EYE QHS RF: 0 atorvastatin 20 mg tablet 20 mg PO QHS Qty: 90 RF: 3 warfarin 5 mg tablet 7.5 mg PO QDAY Qty: 145 RF: 3 Hold Instructions: having left heart cath on 01/24/21 aspirin [Adult Aspirin Regimen] 81 mg tablet,delayed release (DR/EC) 81 mg PO DAILY RF: 0 sotalol 120 mg tablet 120 mg PO BID Qty: 180 RF: 3 Flovent HFA 220 mcg/actuation HFA aerosol inhaler 2 puff INHALATION BID Qty: 12 RF: 6 Primary Care Provider: Marie Marquis Referrals: Marie Marquis MD [Primary Care Provider] - 10-14 Days if not better Disposition Disposition: Home, Self Care
[2021-07-19 10:01] VITALS: BP 133/87; PULSE 71; RESP 16; O2SAT 97
== END 2021-07-19 10:02 | disposition home or self-care (01) ==
PROVIDERS: Emergency Provider Emergency Medicine; PCP Internal Medicine
DX: J20.9 Acute bronchitis, unspecified (principal); E66.9 Obesity, unspecified; J45.909 Unspecified asthma, uncomplicated; E78.5 Hyperlipidemia, unspecified; I25.10 Atherosclerotic heart disease of native coronary artery without angina pectoris; I48.0 Paroxysmal atrial fibrillation; Z79.82 Long term (current) use of aspirin; Z79.01 Long term (current) use of anticoagulants; Z87.891 Personal history of nicotine dependence; Z79.899 Other long term (current) drug therapy
CPT/HCPCS: 71045; 87426; 99284

== ENCOUNTER 2021-08-08 15:34 | Outpatient (RCR) | payer OTHER, SELFPAY ==
[2021-07-28 20:03] VITALS: BMI 41.8
[2021-08-08 16:08] LABS: International Normalized Ratio 2.6; Prothrombin Time (Protime)PT. 26.9 SECONDS (11.7-14.9)
== END 2021-08-28 03:23 | disposition home or self-care (01) ==
LOC: LAB 15:34
PROVIDERS: Family Provider Internal Medicine; PCP Internal Medicine; Referring Provider Internal Medicine Cardiovascular Disease; Visit Provider Internal Medicine Cardiovascular Disease
DX: I48.0 Paroxysmal atrial fibrillation (principal); I48.92 Unspecified atrial flutter; Z79.01 Long term (current) use of anticoagulants
CPT/HCPCS: 36415; 85610

== ENCOUNTER 2021-09-10 05:45 | Emergency (ER) | payer OTHER, SELFPAY ==
[2021-09-10 05:47] VITALS: BP 162/92; PULSE 127; RESP 20; TEMP 36.2; O2SAT 98; BMI 44.5
--- NOTE | 2021-09-10 06:24 | EKG12_ITS ---
Test Reason : CP Blood Pressure : / mmHG Vent. Rate : 117 BPM Atrial Rate : 256 BPM P-R Int : 000 ms QRS Dur : 092 ms QT Int : 322 ms P-R-T Axes : 000 -53 -07 degrees QTc Int : 449 ms Atrial flutter with variable A-V block Left axis deviation Nonspecific ST abnormality Abnormal ECG Confirmed by THOMAS DOBBS, KEREN ([id number]), news videotape editor JOSE LUIS OROPEZA ([id number]) on 09/12/2021 10:56:36 AM Referred By: PAVEL Confirmed By:KEREN GUZMAN MD
--- NOTE | 2021-09-10 06:29 | RAD_ITS ---
STUDY: X-RAY CHEST REASON FOR EXAM: Male, 65 years old. Chest pain TECHNIQUE: Frontal view of the chest COMPARISON: 01/20/21 FINDINGS: The lungs are clear. There are no pleural effusions. There is no pneumothorax. The heart is enlarged, but stable in size. The visualized osseous structures are within normal limits. RAD/Chest 1 View (Portable) IMPRESSION: No acute thoracic pathology. Electronically Signed: Lucas Juarez MD at 7:09 EST Tel , Service support ,
[2021-09-10 06:32] LABS: Absolute Lymphocyte Count 2.62 X10^3/uL (0.83-4.51); Absolute Neutrophil Count 5.1 X10^3/uL (2.0-7.7); Basophil# 0.04 X10^3/uL; Basophil% 0.4 % (0-1); Eosinophil# 0.19 X10^3/uL; Eosinophils% 2.1 % (0-5); Hematocrit 46.3 % (40-54); Hemoglobin 14.5 g/dL (13.0-16.5); Lymphocyte # 2.62 X10^3/ul (0.83-4.51); Lymphocyte % 29.4 % (19-41); Mean Corp Hgb Conc 31.3 g/dL (32-36); Mean Corpuscular Hgb 26.3 pg (27.0-32.0); Mean Corpuscular Volume 83.9 fL (80-94); Mean Platelet Vol. 10.2 fl (6.2-12.0); Monocyte# 0.92 X10^3/uL; Monocyte% 10.3 % (0-10); NRBC Flagged by Analyzer 0 % (0-5); Neutrophil # 5.07 X10^3/uL (2.7-7.7); Neutrophil % 57.1 % (47-70); Platelet Count 330 K/mm3 (150-450); RBC Distribution Width CV 14.5 % (11.6-14.6); Red Blood Count 5.52 M/mm3 (4.6-6.2); White Blood Count 8.9 K/mm3 (4.4-11.0)
[2021-09-10] MEDS: Aspirin 81 MG TAB.CHEW 324 MG PO (06:32)
[2021-09-10] MEDS: dilTIAZem 25 MG/5 ML Vial IV BOLUS (06:33)
[2021-09-10 06:39] VITALS: BP 157/101; PULSE 116
[2021-09-10] MEDS: Nitroglycerin SL (ED/IMG/CATH) 0.4 MG TABLET SL (06:39)
[2021-09-10 06:47] LABS: Anion Gap 2 (5-15); BUN 16 mg/dL (7-18); BUN/Creat Ratio 16.6 RATIO (10-20); Calcium,Total 8.7 mg/dL (8.5-10.1); Chloride 109 mmol/L (98-107); Creatinine, Serum 0.96 mg/dL (0.70-1.30); EST Glomerular Filtration Rate 83 mL/min (>60); Est Glom Filt Rate - Afr Amer 101 mL/min (>60); Glucose 116 mg/dL (74-106); Potassium 4.4 mmol/L (3.5-5.1); Sodium Level 137 mmol/L (136-145); Troponin-I HS 7 pg/mL (3.0-78.0)
--- NOTE | 2021-09-10 06:57 | EDS_ITS ---
HPI History of Present Illness Chief Complaint: Chest Pain Informant: patient Onset/Context/Timing Onset: Yesterday Activity at onset: gradual Timing: Continuous Quality: Positive for Aching and Heaviness Location: Substernal Worsened By: Exertion Relieved By: Rest Associated Symptoms: Positive for Diaphoresis, Dyspnea, Cough, Lightheadedness and Palpitations; Negative for Nausea, Vomiting, Fever and Acid Reflux Narrative Narrative: Patient presents with chest pain that began yesterday. Patient states it is gradually gotten worse. Patient states it has been constant since yesterday. Patient describes it as aching and heaviness. Patient states it is over the substernal area. Patient states it is worse with activities. Patient states it is better with rest. Patient admits to some diaphoresis and shortness of breath with the pain. Patient also admits to a cough. Patient also admits to some lightheadedness and palpitations. Patient states he has a history of atrial fibrillation but this was corrected with cardiac ablation. CVD Risk Factors: Positive for Hypertension, Hypercholesterolemia and Family History 1' </=55; Negative for Diabetes and Smoking PE Risk Factors: Negative for Recent Travel/Surgery, Recent Immobilization, Prior DVT or PE and Cancer [facility] Medical History Asthma Atrial fibrillation and flutter Atrial fibrillation with RVR Essential (primary) hypertension Glaucoma Hyperlipidemia penitentiary current use of anticoagulant Morbid obesity Nonobstructive atherosclerosis of coronary artery Obstructive sleep apnea Paroxysmal atrial fibrillation PND (post-nasal drip) Home Medications latanoprost 1 drp EACH EYE QHS 08/10/14 [History Last Taken 01/19/21] albuterol sulfate 90 mcg/actuation aerosol inhaler 2 puff INHALATION Q6H PRN #18 g 01/27/20 [Rx Last Taken Unknown] atorvastatin 20 mg tablet 20 mg PO QHS #90 tab 12/24/20 [Rx Last Taken 01/24/21] warfarin 5 mg tablet 7.5 mg PO QDAY #145 tablet 12/24/20 [Rx Last Taken 01/20/21] sotalol 120 mg tablet 120 mg PO BID #180 tablet 02/21/21 [Rx Last Taken Unknown] timolol maleate [Timoptic] 1 drp EACH EYE DAILY 09/10/21 [History Last Taken Unknown] Allergy/AdvReac Type Severity Reaction Status Date / Time No Known Allergies Allergy Verified 09/10/21 05:51 Family History Father , age 60 from [place] CAD (coronary artery disease) Myocardial infarction S/P CABG x 3, Onset Age: 38 Mother Cancer Lung cancer Hypertension Sister Cardiomyopathy Sister Atrial fibrillation Grandmother CVA (cerebral vascular accident) Grandfather Cancer stomach cancer Surgical History History of cardioversion (2015) History of left heart catheterization (01/24/21) History of radiofrequency ablation procedure for cardiac arrhythmia (06/2017) Social History household members: spouse Smoking Status: Former smoker Tobacco: How many years used: 35 how long ago did patient quit smokin04/2006 alcohol intake: current alcohol intake frequency: a few times a month Alcohol type: beer substance use type: does not use caffeine: Yes what type of physical activity do you participate in: none ROS ROS ED Constitutional Constitutional ED: Denies chills or fever(s) Eyes Eyes: Denies blurry vision or change in vision ENT ENT ED: Denies rhinorrhea or sore throat Cardiovascular Cardiovascular: Reports chest pain and palpitations Respiratory/Chest Respiratory/Chest: Reports cough and dyspnea Gastrointestinal Gastrointestinal: Reports nausea; Denies abdominal pain or vomiting Genitourinary Genitourinary ED: Denies dysuria or hematuria Musculoskeletal Musculoskeletal: Denies back pain or neck pain Integumentary Denies abscess or rash Neurologic Neurologic: Denies headache(s) or weakness Allergic/Immunologic Allergic/Immunologic ED: Denies mouth swelling or urticaria EXAM Physical Exam Const Vital Signs: 09/10/21 05:47 09/10/21 06:28 09/10/21 06:39 Temperature 97.2 F L Temperature Source Temporal Pulse Rate 127 H 116 H Respiratory Rate 20 H Blood Pressure 162/92 H 157/101 H Blood Pressure Mean 115 Pulse Ox 98 Oxygen Delivery Method Room Air Room Air Positive well nourished, well developed and obese General Appearance ED: well developed Nutritional Appearance: obese HEENT normocephalic and atraumatic Eyes PERRL and EOMs intact bilaterally Neck supple and no JVD Chest Wall palpation of chest normal Resp normal respiratory effort and clear to auscultation bilaterally Effort and Inspection: Negative for respiratory distress Cardio no murmurs Rate: tachycardic Rhythm: abnormal rhythm irregularly irregular GI normal to inspection, nondistended, normoactive bowel sounds, soft to palpation, non-tender and non-distended Extremity normal to inspection General Extremety ED: Negative for edema or tenderness General Extremity: Negative for edema Neuro oriented x3, CN's II-XII intact bilaterally and no sensory deficits noted Sensorium / Orientation: awake and alert Motor Exam: strength 5/5 throughout Psych mental status grossly normal Heart Score History: Moderately Suspicious ECG: Nonspecific Repolarization Age: >45 - <65 years Risk Factors: >/= 3 Risk Factors or History of CAD Score: 5 MDM MDM MDM Narrative Medical decision making narrative: Patient was given aspirin and sublingual nitroglycerin here. EKG was obtained. On my interpretation, showed atrial flutter/fibrillation with a rate of 117. QRS, and QTc intervals were within normal limits. There is left axis deviation at -53. There are nonspecific ST-T wave changes. Portable 1 view chest x-ray was obtained. On my interpretation, lung juarez are clear. There is normal cardiac silhouette. Bony thorax is normal. There is no acute process noted. Radiologist also interpreted the x- ray and agrees. CBC was within normal limits. Basic metabolic profile was normal. Initial high-sensitivity troponin was normal. Patient was given a dose of Cardizem here. 2-hour repeat high-sensitivity troponin was ordered and is pending. Care of the patient was turned over to the oncoming physician. Lab Data Attestation: I reviewed the patient's lab results. Labs: Laboratory Results - last 24 hr 09/10/21 09/10/21 06:03 06:03 WBC 8.9 RBC 5.52 Hgb 14.5 Hct 46.3 MCV 83.9 MCH 26.3 L MCHC 31.3 L RDW Std Deviation 44.0 H RDW Coeff of Bob 14.5 Plt Count 330 MPV 10.2 Immature Gran % (Auto) 0.700 Neut % (Auto) 57.1 Lymph % (Auto) 29.4 Mchenry % (Auto) 10.3 H Eos % (Auto) 2.1 Baso % (Auto) 0.4 Absolute Neuts (auto) 5.1 Absolute Lymphs (auto) 2.62 Nucleated RBC % 0 Sodium 137 Potassium 4.4 Chloride 109 H Carbon Dioxide 26.0 Anion Gap 2 L BUN 16 Creatinine 0.96 Estim Creat Clear Calc 82.80 Est GFR (MDRD) Af Amer 101 Est GFR (MDRD) Non-Af 83 BUN/Creatinine Ratio 16.6 Glucose 116 H Calcium 8.7 Troponin I High Sens 7 Radiography Chest X-Ray - ED: 1 View, Read by ED Physician, Read by Radiologist and Normal Diagnostic Testing: Clinical Impression(s) from Imaging Studies Chest X-Ray 09/10/21 06:29 IMPRESSION: No acute thoracic pathology. Electronically Signed: Lucas Juarez MD at 7:09 EST Tel , Service support , EKG Initial EKG: Attestation: I personally reviewed and interpreted this EKG as follows: Interpretation: Atrial Fibrillation (117) and Non-Specific ST Changes Prior: Changed (The atrial flutter/fibrillation is new compared to previous EKG dated 01/20/2021) Discharge Plan Triage Chief Complaint: Chest Pain ED Provider: José Luis Hilliard Dx/Rx/DC Orders Clinical Impression: Atrial fibrillation and flutter, Chest pain Prescriptions: No Action albuterol sulfate [ProAir HFA] 90 mcg/actuation HFA aerosol inhaler 2 puff INHALATION Q6H PRN (Reason: shortness of breath or wheezing) Qty: 18 RF: 6 latanoprost 1 DROP bottle 1 drp EACH EYE QHS RF: 0 timolol maleate [Timoptic] 0.5 % Drops 1 drp EACH EYE DAILY RF: 0 atorvastatin 20 mg tablet 20 mg PO QHS Qty: 90 RF: 3 warfarin 5 mg tablet 7.5 mg PO QDAY Qty: 145 RF: 3 Hold Instructions: having left heart cath on 01/24/21 sotalol 120 mg tablet 120 mg PO BID Qty: 180 RF: 3 Primary Care Provider: Marie Marquis Referrals: Marie Marquis MD [Primary Care Provider] -
[2021-09-10 07:22] VITALS: BP 115/69; PULSE 107; RESP 17; O2SAT 95
[2021-09-10 08:00] VITALS: BP 123/67; PULSE 96; RESP 12; O2SAT 95
[2021-09-10 08:24] LABS: Troponin-I HS 6 pg/mL (3.0-78.0)
[2021-09-10 09:00] VITALS: BP 140/97; PULSE 100; RESP 18; O2SAT 96
[2021-09-10] MEDS: dilTIAZem CD 120 MG Capsule PO (09:35)
[2021-09-10 10:04] VITALS: PULSE 105; RESP 16; O2SAT 95
--- NOTE | 2021-09-10 10:06 | ED.RN ---
REVIEWED D/C INSTRUCTIONS, FOLLOW UP CARE, PRESCRIPTION, AND S/S THAT WOULD WARRANT A RETURN TO THE ED WITH PT. PT VERBALIZED AN UNDERSTANDING AND DENIES FURTHER QUESTIONS FOR THIS RN. PT SKIN P/W/D, RESP EVEN AND UNLABORED, PT A&O X 3, NO DISTRESS NOTED. PT AMBULATED OUT OF ED, GAIT STEADY.
== END 2021-09-10 10:08 | disposition home or self-care (01) ==
PROVIDERS: Emergency Provider Emergency Medicine; PCP Internal Medicine
DX: I48.0 Paroxysmal atrial fibrillation (principal); I48.92 Unspecified atrial flutter; J45.909 Unspecified asthma, uncomplicated; I10 Essential (primary) hypertension; E78.5 Hyperlipidemia, unspecified; E66.9 Obesity, unspecified; Z79.01 Long term (current) use of anticoagulants; Z79.899 Other long term (current) drug therapy; Z87.891 Personal history of nicotine dependence
CPT/HCPCS: 71045; 80048; 84484; 85025; 93005; 96374; 99284; A4216

== ENCOUNTER 2021-09-13 12:00 | Outpatient (RCR) | payer OTHER, SELFPAY ==
[2021-08-28 03:23] VITALS: BMI 41.8
[2021-09-13 12:44] LABS: International Normalized Ratio 2.5
== END 2021-09-27 18:00 | disposition home or self-care (01) ==
LOC: LAB 12:00
PROVIDERS: Family Provider Internal Medicine; PCP Internal Medicine; Referring Provider Internal Medicine Cardiovascular Disease; Visit Provider Internal Medicine Cardiovascular Disease
DX: I48.0 Paroxysmal atrial fibrillation (principal); I48.92 Unspecified atrial flutter; Z79.01 Long term (current) use of anticoagulants
CPT/HCPCS: 36415; 85610

== ENCOUNTER 2021-09-19 11:10 | Day surgery (SDC) | payer OTHER, SELFPAY ==
[2021-09-16 09:21] VITALS: BMI 44.6
[2021-09-19 11:30] LABS: INR Fingerstick 3.1; Prothrombin Time Fingerstick 34.2 SEC (11.9-14.4)
--- NOTE | 2021-09-19 13:00 | PCM.OP.BLANK ---
Problems Associated Problem List Diagnoses (1) Atrial fibrillation with RVR: Operative Report Date of Procedure: 09/19/21 DC cardioversion. 65-year-old man with a history of paroxysmal atrial fibrillation status post ablation. The patient was brought to the cardiac catheterization lab in the postabsorptive nonsedated state. The patient was seen by Dr. Perez of the critical care division. Informed consent was obtained. Anterior-posterior pads were applied. 300 J of synchronized biphasic cardioversion energy were applied with prompt reversal to sinus rhythm. Patient tolerated the procedure well. Conclusion: Successful DC cardioversion from atrial fibrillation to sinus rhythm. Continue current medications Continue anticoagulation.
--- NOTE | 2021-09-19 13:56 | PRO.PCM_ITS ---
Assessment & Plan Assessment/Plan (1) Atrial fibrillation and flutter: (2) Obstructive sleep apnea: (3) Asthma: QUALIFIERS: Asthma severity: unspecified severity Asthma persistence: unspecified Asthma complication type: unspecified Qualified Code(s): J45.909 - Unspecified asthma, uncomplicated (4) FPC current use of anticoagulant: Procedure Report Date of Procedure: 09/19/21 CONSCIOUS SEDATION REPORT BRIEF HISTORY OF PRESENT ILLNESS: The patient is a 65-year-old male who presented to [facility] for an elective outpatient cardioversion due to underlying atrial fibrillation. The patient reports no PO intake since midnight, but is currently therapeutic on anticoagulation. The patient does have a history of asthma and ARABELLA, but has no signs or symptoms of exacerbation. The patient denies any recent constitutional symptoms such as fevers, chills, nausea or vomiting. The patient denies previous applicable anesthetic complications. Patient has had previous cardioversions and tolerated well. Patient's INR on the day of procedure was 3.1. Patient's last known ejection fraction was 60%. PHYSICAL EXAMINATION: VITAL SIGNS: Reviewed and were acceptable. GENERAL: The patient is a male, in no apparent distress, speaking in full sentences. HEENT: Normocephalic, atraumatic. Mucous membranes are moist and pink. Good mouth opening noted. Trachea is midline. Good neck mobility. MP IV CHEST: S1, S2 irregularly irregular. No murmurs, rubs or gallops were noted. LUNGS: Clear to auscultation bilaterally without appreciable wheezes, rales or rhonchi. ABDOMEN: Soft, nontender, nondistended. Positive bowel sounds. EXTREMITIES: There is no clubbing, cyanosis or edema. ASA Class: II DESCRIPTION OF PROCEDURE: After confirmation of informed consent, the patient's anesthesia plan was reviewed in detail. Propofol was chosen. Risks and benefits were reviewed and the patient agreed to proceed. At 12:52 PM, the patient was given 40 mg of propofol. The patient required a total of 100 mg of propofol throughout the procedure to achieve appropriate sedation. The patient achieved an appropriate level of sedation and received 1 attempt synchronized cardioversion, at [address] Green at the bedside. This was successful in achieving normal sinus rhythm. The patient was monitored until 1:08 PM, at which time the patient reached their baseline mental status and function. The patient tolerated the procedure well. COMPLICATIONS: None ESTIMATED BLOOD LOSS: None RECOMMENDATIONS: Okay to recover in usual fashion. Procedures Pulmonary 9xxxx: [id number] Con Sedation
== END 2021-09-19 14:00 | disposition home or self-care (01) ==
PROVIDERS: PCP Internal Medicine; Visit Provider Internal Medicine Cardiovascular Disease
DX: I48.0 Paroxysmal atrial fibrillation (principal); E78.5 Hyperlipidemia, unspecified; G47.33 Obstructive sleep apnea (adult) (pediatric); J45.909 Unspecified asthma, uncomplicated; I10 Essential (primary) hypertension; E66.01 Morbid (severe) obesity due to excess calories; Z79.01 Long term (current) use of anticoagulants; Z79.899 Other long term (current) drug therapy; Z79.51 Long term (current) use of inhaled steroids; Z87.891 Personal history of nicotine dependence; Z68.41 Body mass index [BMI] 40.0-44.9, adult
CPT/HCPCS: 36416; 85610; 92960; 93005; J7040

== ENCOUNTER 2021-11-09 10:19 | Outpatient (RCR) | payer OTHER, SELFPAY ==
[2021-09-28 02:04] VITALS: BMI 41.8
[2021-11-09 11:38] LABS: International Normalized Ratio 2.8; Prothrombin Time (Protime)PT. 28.7 SECONDS (11.7-14.9)
== END 2021-11-28 18:00 | disposition home or self-care (01) ==
LOC: LAB 10:19
PROVIDERS: Family Provider Internal Medicine; PCP Internal Medicine; Referring Provider Internal Medicine Cardiovascular Disease; Visit Provider Internal Medicine Cardiovascular Disease
DX: I48.91 Unspecified atrial fibrillation (principal); I48.92 Unspecified atrial flutter; I48.0 Paroxysmal atrial fibrillation; Z79.01 Long term (current) use of anticoagulants
CPT/HCPCS: 36415; 85610

== ENCOUNTER 2021-12-14 06:22 | Outpatient (RCR) | payer OTHER, SELFPAY ==
[2021-11-28 22:14] VITALS: BMI 41.8
[2021-12-14 07:43] LABS: International Normalized Ratio 2.8; Prothrombin Time (Protime)PT. 28.6 SECONDS (11.7-14.9)
== END 2021-12-14 18:00 | disposition home or self-care (01) ==
LOC: LAB 06:22
PROVIDERS: Family Provider Internal Medicine; PCP Internal Medicine; Referring Provider Internal Medicine Cardiovascular Disease; Visit Provider Internal Medicine Cardiovascular Disease
DX: I48.0 Paroxysmal atrial fibrillation (principal); I48.92 Unspecified atrial flutter; Z79.01 Long term (current) use of anticoagulants
CPT/HCPCS: 36415; 85610

== ENCOUNTER 2022-01-06 07:41 | Outpatient (RCR) | payer OTHER, SELFPAY ==
[2021-12-27 09:22] VITALS: BMI 41.8
[2022-01-06 08:52] LABS: International Normalized Ratio 2.8; Prothrombin Time (Protime)PT. 28.6 SECONDS (11.7-14.9)
== END 2022-01-26 18:00 | disposition home or self-care (01) ==
LOC: LAB 07:41
PROVIDERS: Family Provider Internal Medicine; PCP Internal Medicine; Referring Provider Internal Medicine Cardiovascular Disease; Visit Provider Internal Medicine Cardiovascular Disease
DX: I48.91 Unspecified atrial fibrillation (principal); I48.92 Unspecified atrial flutter; I48.0 Paroxysmal atrial fibrillation; Z79.01 Long term (current) use of anticoagulants
CPT/HCPCS: 36415; 85610

== ENCOUNTER 2022-02-23 07:30 | Emergency (ER) | payer OTHER, SELFPAY ==
[2022-02-23 07:31] VITALS: BP 153/66; PULSE 91; RESP 20; TEMP 36.4; O2SAT 98; BMI 45.1
--- NOTE | 2022-02-23 07:38 | RAD_ITS ---
STUDY: X-RAY CHEST REASON FOR EXAM: Male, 66 years old. Shortness of breath. TECHNIQUE: Single AP portable view of the chest. COMPARISON: Comparison is made with prior study dated 09/10/2021. FINDINGS: EKG electrodes are seen. The lungs are clear and expanded. There is no demonstrated pleural abnormality. Normal size heart. Normal mediastinum and beka. Normal visualized pulmonary arteries. There is atherosclerotic tortuosity of the aortic arch and descending thoracic aorta. There are degenerative changes of the visualized thoracic spine. Normal visualized ribs, clavicles, and shoulders. There is no demonstrated abnormality of the visualized soft tissue structures of the upper abdomen. RAD/Chest 1 View (Portable) IMPRESSION: Stable examination. No acute abnormality is seen. Electronically Signed: Terrance Branham MD at 8:35 EDT ,
--- NOTE | 2022-02-23 07:38 | EKG12_ITS ---
Test Reason : SOB Blood Pressure : / mmHG Vent. Rate : 098 BPM Atrial Rate : 288 BPM P-R Int : 000 ms QRS Dur : 100 ms QT Int : 378 ms P-R-T Axes : 000 -28 022 degrees QTc Int : 482 ms Atrial fibrillation /Flutter Prolonged QT Poor R wave progression Nonspecific T wave abnormality Abnormal ECG Confirmed by JOSE DOBBS, FELICE ([id number]), editor managing director JOSE LUIS OROPEZA ([id number]) on 02/24/2022 10:27:55 AM Referred By: MARIA G Confirmed By:FELICE GARCIA MD
--- NOTE | 2022-02-23 07:39 | EX.ED.DYSGE1 ---
HPI History of Present Illness Chief Complaint: Shortness of Breath Informant: patient Onset/Context/Timing Onset: Today Current Severity: Mild Maximum Severity: Moderate Narrative Narrative: Patient presents secondary to palpitations and shortness of breath. He has a history of paroxysmal A. fib. He states he is normally in sinus rhythm. After getting to work today he felt like his heart started skipping beats and racing. He had some shortness of breath with it. Denied actual chest pain. He states symptoms are improving at this time but not back to normal. He felt well this morning when he first got up. Mild recent cough. No fever or chills. [facility] Medical History Asthma Atrial fibrillation and flutter Atrial fibrillation with RVR Essential (primary) hypertension Glaucoma Hyperlipidemia FPC current use of anticoagulant Morbid obesity Nonobstructive atherosclerosis of coronary artery Obstructive sleep apnea Paroxysmal atrial fibrillation PND (post-nasal drip) Home Medications latanoprost 1 drp EACH EYE QHS 08/10/14 [History Last Taken 01/19/21] albuterol sulfate 90 mcg/actuation aerosol inhaler 2 puff INHALATION Q6H PRN #18 g 01/27/20 [Rx Last Taken Unknown] sotalol 120 mg tablet 120 mg PO BID #180 tablet 02/21/21 [Rx Last Taken 09/19/21] timolol maleate [Timoptic] 1 drp EACH EYE DAILY 09/10/21 [History Last Taken Unknown] diltiazem HCl 120 mg tablet 120 mg PO BID #180 tab 11/09/21 [Rx Last Taken Unknown] atorvastatin 20 mg tablet 20 mg PO QHS #90 tab 12/22/21 [Rx Last Taken Unknown] warfarin 5 mg tablet 7.5 mg PO QDAY #145 tablet 12/22/21 [Rx Last Taken Unknown] Allergy/AdvReac Type Severity Reaction Status Date / Time No Known Allergies Allergy Verified 02/23/22 07:30 Family History Father , age 60 from [place] CAD (coronary artery disease) Myocardial infarction S/P CABG x 3, Onset Age: 38 Mother Cancer Lung cancer Hypertension Sister Cardiomyopathy Sister Atrial fibrillation Grandmother CVA (cerebral vascular accident) Grandfather Cancer stomach cancer Surgical History History of cardioversion (2015) History of left heart catheterization (01/24/21) History of radiofrequency ablation procedure for cardiac arrhythmia (06/2017) Social History household members: spouse Smoking Status: Former smoker Tobacco: How many years used: 35 how long ago did patient quit smokin04/2006 alcohol intake: current alcohol intake frequency: a few times a month Alcohol type: beer substance use type: does not use caffeine: Yes what type of physical activity do you participate in: none ROS ROS ED Constitutional Constitutional ED: Denies chills or fever(s) Eyes Eyes: Denies change in vision ENT ENT ED: Denies sore throat Cardiovascular Cardiovascular: Reports palpitations and racing heartbeat; Denies chest pain Respiratory/Chest Respiratory/Chest: Reports cough and dyspnea Gastrointestinal Gastrointestinal: Denies abdominal pain, nausea or vomiting Genitourinary Genitourinary ED: Denies dysuria Musculoskeletal Musculoskeletal: Denies back pain or neck pain Integumentary Denies rash Neurologic Neurologic: Denies headache(s) or weakness Allergic/Immunologic Allergic/Immunologic ED: Denies urticaria EXAM Physical Exam Const Vital Signs: 02/23/22 07:31 02/23/22 07:47 02/23/22 08:15 Temperature 97.6 F L Temperature Source Temporal Pulse Rate 91 92 Respiratory Rate 20 H 18 Respiratory Effort Normal Blood Pressure 153/66 H 133/76 H Blood Pressure Mean 95 95 Pulse Ox 98 96 Oxygen Delivery Method Room Air Room Air Room Air Positive obese Nutritional Appearance: obese HEENT Reports moist mucous membranes Eyes PERRL and EOMs intact bilaterally Neck supple Chest Wall inspection of chest normal and palpation of chest normal Resp normal respiratory effort and clear to auscultation bilaterally Cardio regular rate and regular rhythm GI non-tender Palpation: soft Extremity normal to inspection Neuro oriented x3 Sensorium / Orientation: alert Psych mental status grossly normal Skin no rashes or lesions noted MDM MDM MDM Narrative Medical decision making narrative: Patient placed on customer sales specialist. EKG, chest x-ray, lab work obtained. Lab Data Attestation: I reviewed the patient's lab results. Labs: Laboratory Results - last 24 hr 02/23/22 02/23/22 02/23/22 07:43 07:43 07:43 WBC 8.2 RBC 5.62 Hgb 14.7 Hct 47.1 MCV 83.8 MCH 26.2 L MCHC 31.2 L RDW Std Deviation 47.8 H RDW Coeff of Bob 15.6 H Plt Count 339 MPV 10.0 Immature Gran % (Auto) 0.600 Neut % (Auto) 65.6 Lymph % (Auto) 23.6 [place] % (Auto) 6.8 Eos % (Auto) 2.9 Baso % (Auto) 0.5 Absolute Neuts (auto) 5.4 Absolute Lymphs (auto) 1.94 Nucleated RBC % 0 PT 28.5 H INR 2.7 Sodium 138 Potassium 4.4 Chloride 108 H Carbon Dioxide 25.0 Anion Gap 5 BUN 15 Creatinine 1.04 Estim Creat Clear Calc 75.42 Est GFR (MDRD) Af Amer 92 Est GFR (MDRD) Non-Af 76 BUN/Creatinine Ratio 14.4 Glucose 209 H Calcium 9.1 Troponin I High Sens < 3 L Radiography Chest X-Ray - ED: 1 View, Read by ED Physician and Chronic Changes Diagnostic Testing: Clinical Impression(s) from Imaging Studies Chest X-Ray 02/23/22 07:38 IMPRESSION: Stable examination. No acute abnormality is seen. Electronically Signed: Terrance Branham MD at 8:35 EDT , EKG Initial EKG: Attestation: I personally reviewed and interpreted this EKG as follows: Interpretation: Atrial Fibrillation (Atrial fibrillation with ventricular rate of 98. No acute ischemic changes.) Treatment and Re-Evaluation Narrative: On repeat evaluation patient resting comfortably. Heart rate has been in the 90s. CBC and chemistry studies unremarkable. Troponin less than 3. INR therapeutic at 2.7. I did review prior visit from last August with similar presentation. With heart rate well controlled it was felt patient could be discharged home at that time to see if sotalol would convert him back to sinus rhythm. He did ultimately require cardioversion approximately 10 days later. We will plan for that same course of treatment at this time as he is not low risk for sedation at this point and he is in no distress. Patient will call Dr. Green's office for follow-up appointment early next week. If still in A. fib at that time and symptomatic we will likely schedule him for elective cardioversion. Patient is comfortable with the plan. Discharge Plan Triage Chief Complaint: Shortness of Breath ED Provider: Kate Alonso Dx/Rx/DC Orders Clinical Impression: Atrial fibrillation Instructions: ED AFIB Prescriptions: No Action albuterol sulfate [ProAir HFA] 90 mcg/actuation HFA aerosol inhaler 2 puff INHALATION Q6H PRN (Reason: shortness of breath or wheezing) Qty: 18 RF: 6 latanoprost 1 DROP bottle 1 drp EACH EYE QHS RF: 0 timolol maleate [Timoptic] 0.5 % Drops 1 drp EACH EYE DAILY RF: 0 sotalol 120 mg tablet 120 mg PO BID Qty: 180 RF: 3 diltiazem HCl [Cardizem] 120 mg tablet 120 mg PO BID Qty: 180 RF: 3 warfarin 5 mg tablet 7.5 mg PO QDAY Qty: 145 RF: 3 Hold Instructions: having left heart cath on 01/24/21 atorvastatin 20 mg tablet 20 mg PO QHS Qty: 90 RF: 3 Stand Alone Forms: ED Work / School Excuse Primary Care Provider: Marie Marquis Referrals: Eris Green MD [STAFF PHYSICIAN] - 3-5 Days Marie Marquis MD [Primary Care Provider] - Disposition Disposition: Home, Self Care
[2022-02-23 07:47] VITALS: O2SAT 98
[2022-02-23 07:51] LABS: Absolute Lymphocyte Count 1.94 X10^3/uL (0.83-4.51); Absolute Neutrophil Count 5.4 X10^3/uL (2.0-7.7); Basophil# 0.04 X10^3/uL; Basophil% 0.5 % (0-1); Eosinophil# 0.24 X10^3/uL; Eosinophils% 2.9 % (0-5); Hematocrit 47.1 % (40-54); Hemoglobin 14.7 g/dL (13.0-16.5); Lymphocyte # 1.94 X10^3/ul (0.83-4.51); Lymphocyte % 23.6 % (19-41); Mean Corp Hgb Conc 31.2 g/dL (32-36); Mean Corpuscular Hgb 26.2 pg (27.0-32.0); Mean Corpuscular Volume 83.8 fL (80-94); Monocyte# 0.56 X10^3/uL; Monocyte% 6.8 % (0-10); NRBC Flagged by Analyzer 0 % (0-5); Neutrophil # 5.39 X10^3/uL (2.7-7.7); Neutrophil % 65.6 % (47-70); Platelet Count 339 K/mm3 (150-450); RBC Distribution Width CV 15.6 % (11.6-14.6); RBC Distribution Width SD 47.8 fl (35.1-43.9); Red Blood Count 5.62 M/mm3 (4.6-6.2); White Blood Count 8.2 K/mm3 (4.4-11.0)
[2022-02-23 08:10] LABS: Anion Gap 5 (5-15); BUN 15 mg/dL (7-18); BUN/Creat Ratio 14.4 RATIO (10-20); Calcium,Total 9.1 mg/dL (8.5-10.1); Chloride 108 mmol/L (98-107); Creatinine, Serum 1.04 mg/dL (0.70-1.30); EST Glomerular Filtration Rate 76 mL/min (>60); Est Glom Filt Rate - Afr Amer 92 mL/min (>60); Estimated Creatinine Clearance 75.42 ml/min; Glucose 209 mg/dL (74-106); International Normalized Ratio 2.7; Potassium 4.4 mmol/L (3.5-5.1); Prothrombin Time (Protime)PT. 28.5 SECONDS (11.7-14.9); Sodium Level 138 mmol/L (136-145); Troponin-I HS < 3 pg/mL (3.0-78.0)
[2022-02-23 08:15] VITALS: BP 133/76; PULSE 92; RESP 18; O2SAT 96
[2022-02-23 09:21] VITALS: BP 131/77; PULSE 94; RESP 16; O2SAT 98
== END 2022-02-23 09:27 | disposition home or self-care (01) ==
PROVIDERS: Emergency Provider Emergency Medicine; PCP Internal Medicine; Visit Provider Emergency Medicine
DX: I48.0 Paroxysmal atrial fibrillation (principal); E66.01 Morbid (severe) obesity due to excess calories; Z68.42 Body mass index [BMI] 45.0-49.9, adult; Z87.891 Personal history of nicotine dependence; I10 Essential (primary) hypertension; E78.5 Hyperlipidemia, unspecified; I25.10 Atherosclerotic heart disease of native coronary artery without angina pectoris; J45.909 Unspecified asthma, uncomplicated; G47.33 Obstructive sleep apnea (adult) (pediatric); Z79.899 Other long term (current) drug therapy; Z79.01 Long term (current) use of anticoagulants
CPT/HCPCS: 71045; 80048; 84484; 85025; 85610; 93005; 99284; A4216

== ENCOUNTER 2022-02-24 09:16 | Outpatient (RCR) | payer OTHER, SELFPAY ==
[2022-01-27 01:01] VITALS: BMI 41.8
[2022-02-24 10:44] LABS: International Normalized Ratio 3.2; Prothrombin Time (Protime)PT. 32.2 SECONDS (11.7-14.9)
[2022-02-24 11:12] LABS: BNP,B-Type NATRIURETIC PEPTIDE 42.2 pg/mL (0-100)
== END 2022-02-24 18:00 | disposition home or self-care (01) ==
LOC: LAB 09:16
PROVIDERS: Nurse Practitioner Gerontology; Family Provider Internal Medicine; PCP Internal Medicine; Referring Provider Internal Medicine Cardiovascular Disease; Visit Provider Internal Medicine Cardiovascular Disease
DX: I48.92 Unspecified atrial flutter; I48.0 Paroxysmal atrial fibrillation; Z79.01 Long term (current) use of anticoagulants; R06.00 Dyspnea, unspecified
CPT/HCPCS: 36415; 83880; 85610

== ENCOUNTER → 2022-03-22 | Outpatient (CLI) | payer OTHER, SELFPAY ==
--- NOTE | 2022-03-22 06:15 | ECHOD_ITS ---
Reason For Study: Dyspnea/SOB Procedure This was a 2D Doppler, Color Flow transthoracic echocardiogram. Exam performed in department. Left Ventricle Normal LV size. Left ventricular systolic function is normal. The estimated ejection fraction is 55 %. Normal diastology for age. No regional wall motion abnormalities noted. Right Ventricle Normal RV size. Normal systolic function. Atria Normal left atrium. Normal right atrium. Mitral Valve Normal mitral valve. Tricuspid Valve Normal tricuspid valve. Mild (1+) tricuspid valve insufficiency. Pulmonary artery systolic pressure is 30 mmHg. Aortic Valve Normal aortic valve. Trisinus/trileaflet aortic valve. Pulmonic Valve Normal pulmonic valve. Great Vessels Normal aortic root. The pulmonary artery is normal size. and partially collapses. Pericardium/Pleural No pericardial effusion. MMode/2D Measurements & Calculations LVIDd: 5.5 cm IVSd: 1.2 cm Ao root diam: 3.7 cm LVIDs: 3.9 cm LVPWd: 1.1 cm RVDd: 3.3 cm FS: 28.5 % LAV(MOD-bp): 58.3 ml LVAd ap4: 29.5 cm2 SV(MOD-sp4): 50.6 ml LAV(MOD-bp) Indexed: 22.6 ml/m2 LVLd ap4: 9.0 cm LAV(MOD-sp2): 70.4 ml EDV(MOD-sp4): 82.7 ml LAV(MOD-sp4): 47.3 ml EDV(sp4-el): 81.9 ml LVAs ap4: 17.1 cm2 LVLs ap4: 7.9 cm ESV(MOD-sp4): 32.1 ml ESV(sp4-el): 31.5 ml EF(MOD-sp4): 61.2 % EF(sp4-el): 61.6 % SV(sp4-el): 50.5 ml LA A4 area: 19.1 cm2 LA dimension(2D): 4.6 cm RA A4 area: 12.3 cm2 Doppler Measurements & Calculations MV E max josh: 104.2 cm/sec Lat Peak E' Josh: 10.1 cm/sec Med Peak E' Josh: 8.4 cm/sec MV A max josh: 64.5 cm/sec E/E' lat: 10.3 E/E' med: 12.4 MV E/A: 1.6 Ao V2 max: 141.9 cm/sec LV V1 max: 118.1 cm/sec PA V2 max: 111.3 cm/sec Ao max P.1 mmHg LV V1 max P.6 mmHg Ao V2 mean: 98.6 cm/sec Ao mean P.3 mmHg Ao V2 VTI: 27.7 cm TR max josh: 259.8 cm/sec TR max P.0 mmHg ECHO/Echo Complete Interpretation Summary Normal LV size. Left ventricular systolic function is normal. The estimated ejection fraction is 55 %. Structurally normal valves. Ordering Physician: Tasneem Sunshine Referring Physician: Marie Marquis Performed By: Stephanie Noriega, LUCHO, RVT
--- NOTE | 2022-03-22 15:14 | STRESSREP ---
Stress Test Report Exercise myocardial perfusion stress test. 66-year-old male with a history of dyspnea and chest pain. Stress protocol: Resting KG demonstrates normal sinus rhythm with a rate of 70 bpm normal intervals are noted resting blood pressure is 150/88 mmHg. The patient exercised according to regular Werner protocol for total duration of 6 minutes. The maximum heart rate attained was 125 bpm which was 80% of max impact at heart rate the maximum workload was 7 metabolic equivalents. At rest there were no ST or T wave changes noted suggest ischemia and at peak exercise upsloping ST changes were noted with did not meet the criteria for ischemia. No clinical angina was noted the test was terminated due to dyspnea. The peak blood pressure was 180/82 mmHg. Myocardial perfusion protocol. 14.8 mCi of technetium 99m sestamibi was injected at rest. The patient exercised according to regular Werner protocol for 6 minutes and at peak exercise 44.9 mCi of technetium 99m sestamibi was injected stress images were obtained stress and rest images were reconstructed and compared to a short axis vertical long and horizontal long axis. Gated images were also obtained to Perfusion SPECT analysis: Review of the stress images demonstrate normal perfusion noted in all areas of the myocardium. The resting images similarly demonstrate normal perfusion noted in all areas of the myocardium. No previous infarct is noted and no ischemia is noted. Gated SPECT analysis: The gated ejection fraction is noted to be 66%. Conclusion: Normal exercise myocardial perfusion stress test at a moderate workload. Preserved ejection fraction.
== END | disposition home or self-care (01) ==
LOC: CVS 06:14
PROVIDERS: PCP Internal Medicine; Visit Provider Nurse Practitioner Gerontology
DX: R06.00 Dyspnea, unspecified (principal); I25.10 Atherosclerotic heart disease of native coronary artery without angina pectoris; R07.9 Chest pain, unspecified
CPT/HCPCS: 78452; 93017; 93306; A9500; A4216

== ENCOUNTER → 2022-04-27 | Outpatient (CLI) | payer OTHER, SELFPAY ==
[2022-04-27 15:11] LABS: Absolute Lymphocyte Count 2.46 X10^3/uL (0.83-4.51); Absolute Neutrophil Count 8.2 X10^3/uL (2.0-7.7); Basophil# 0.04 X10^3/uL; Basophil% 0.3 % (0-1); Eosinophil# 0.26 X10^3/uL; Eosinophils% 2.2 % (0-5); Hematocrit 43.2 % (40-54); Hemoglobin 13.5 g/dL (13.0-16.5); Lymphocyte # 2.46 X10^3/ul (0.83-4.51); Lymphocyte % 20.7 % (19-41); Mean Corp Hgb Conc 31.3 g/dL (32-36); Mean Corpuscular Hgb 26.5 pg (27.0-32.0); Mean Corpuscular Volume 84.7 fL (80-94); Mean Platelet Vol. 9.8 fl (6.2-12.0); Monocyte# 0.91 X10^3/uL; Monocyte% 7.7 % (0-10); NRBC Flagged by Analyzer 0 % (0-5); Neutrophil # 8.16 X10^3/uL (2.7-7.7); Neutrophil % 68.6 % (47-70); Platelet Count 339 K/mm3 (150-450); RBC Distribution Width CV 14.1 % (11.6-14.6); RBC Distribution Width SD 43.8 fl (35.1-43.9); White Blood Count 11.9 K/mm3 (4.4-11.0)
== END | disposition home or self-care (01) ==
LOC: LAB 14:47
PROVIDERS: PCP Internal Medicine; Visit Provider Nurse Practitioner Gerontology
DX: R23.3 Spontaneous ecchymoses (principal)
CPT/HCPCS: 36415; 85025

== ENCOUNTER 2022-10-11 12:02 | Outpatient (RCR) | payer MEDICARE, OTHER, SELFPAY ==
[2022-02-26 02:42] VITALS: BMI 41.8
[2022-10-11 12:41] LABS: Absolute Lymphocyte Count 3.11 X10^3/uL (0.83-4.51); Basophil# 0.06 X10^3/uL; Basophil% 0.5 % (0-1); Eosinophil# 0.21 X10^3/uL; Eosinophils% 1.8 % (0-5); Hematocrit 49.1 % (40-54); Hemoglobin 15.4 g/dL (13.0-16.5); Lymphocyte # 3.11 X10^3/ul (0.83-4.51); Mean Corp Hgb Conc 31.4 g/dL (32-36); Mean Corpuscular Hgb 26.7 pg (27.0-32.0); Mean Corpuscular Volume 85.2 fL (80-94); Mean Platelet Vol. 10.1 fl (6.2-12.0); Monocyte# 1.08 X10^3/uL; Monocyte% 9.4 % (0-10); NRBC Flagged by Analyzer 0 % (0-5); Neutrophil # 6.95 X10^3/uL (2.7-7.7); Neutrophil % 60.5 % (47-70); Platelet Count 342 K/mm3 (150-450); RBC Distribution Width CV 14.3 % (11.6-14.6); RBC Distribution Width SD 43.8 fl (35.1-43.9); Red Blood Count 5.76 M/mm3 (4.6-6.2); White Blood Count 11.5 K/mm3 (4.4-11.0)
[2022-10-11 13:01] LABS: International Normalized Ratio 2.2; Prothrombin Time (Protime)PT. 24.5 SECONDS (11.7-14.9)
[2022-10-11 13:14] LABS: Anion Gap 3 (5-15); BUN 15 mg/dL (7-18); Calcium,Total 9.1 mg/dL (8.5-10.1); Chloride 106 mmol/L (98-107); EST Glomerular Filtration Rate 80 mL/min (>60); Est Glom Filt Rate - Afr Amer 96 mL/min (>60); Glucose 99 mg/dL (74-106); Magnesium 2.5 mg/dL (1.6-2.6); Potassium 4.3 mmol/L (3.5-5.1); Sodium Level 136 mmol/L (136-145); Thyroid Stim Hormone (TSH) 3.01 uIU/mL (0.358-3.74)
== END 2022-10-11 18:00 | disposition home or self-care (01) ==
LOC: LAB 12:02
PROVIDERS: Physician Assistant Medical; Family Provider Internal Medicine; PCP Internal Medicine; Referring Provider Internal Medicine Cardiovascular Disease; Visit Provider Internal Medicine Cardiovascular Disease
DX: I48.92 Unspecified atrial flutter; I48.0 Paroxysmal atrial fibrillation; Z79.01 Long term (current) use of anticoagulants
CPT/HCPCS: 36415; 80048; 83735; 84443; 85025; 85610

== ENCOUNTER → 2022-10-16 | Day surgery (SDC) | payer MEDICARE, OTHER, SELFPAY ==
[2022-10-13 14:27] VITALS: BMI 46.7
[2022-10-16 13:40] LABS: INR Fingerstick 2.7; Prothrombin Time Fingerstick 31.1 SEC (11.7-14.9)
== END | disposition home or self-care (01) ==
LOC: CLSP 10-24 17:31
PROVIDERS: PCP Internal Medicine; Visit Provider Internal Medicine Cardiovascular Disease
DX: T82.857A Stenosis of other cardiac prosthetic devices, implants and grafts, initial encounter (principal); Y83.1 Surgical operation with implant of artificial internal device as the cause of abnormal reaction of the patient, or of later complication, without mention of misadventure at the time of the procedure; Z53.9 Procedure and treatment not carried out, unspecified reason; Z20.822 Contact with and (suspected) exposure to COVID-19; J45.909 Unspecified asthma, uncomplicated; I10 Essential (primary) hypertension; E78.2 Mixed hyperlipidemia; Z79.899 Other long term (current) drug therapy; Z95.2 Presence of prosthetic heart valve
CPT/HCPCS: 36416; 85610; 87426; 93005; C9803

== ENCOUNTER → 2022-10-16 | Outpatient (CLI) | payer MEDICARE, OTHER, SELFPAY ==
[2022-10-13 14:15] VITALS: BMI 46.7
== END | disposition home or self-care (01) ==
LOC: PSN 08:18
PROVIDERS: PCP Internal Medicine; Visit Provider Internal Medicine Cardiovascular Disease
DX: Z20.822 Contact with and (suspected) exposure to COVID-19 (principal)
CPT/HCPCS: 87426; C9803

== ENCOUNTER 2022-11-02 07:58 | Outpatient (RCR) | payer MEDICARE, OTHER, SELFPAY ==
[2022-10-28 22:53] VITALS: BMI 41.8
[2022-11-02 08:59] LABS: International Normalized Ratio 2.4; Prothrombin Time (Protime)PT. 25.7 SECONDS (11.7-14.9)
== END 2022-11-02 09:00 | disposition home or self-care (01) ==
LOC: LAB 07:58
PROVIDERS: Family Provider Internal Medicine; PCP Internal Medicine; Referring Provider Internal Medicine Cardiovascular Disease; Visit Provider Internal Medicine Cardiovascular Disease
DX: I48.92 Unspecified atrial flutter; I48.0 Paroxysmal atrial fibrillation; Z79.01 Long term (current) use of anticoagulants
CPT/HCPCS: 36415; 85610

== ENCOUNTER 2022-12-18 07:39 | Outpatient (RCR) | payer MEDICARE, OTHER, SELFPAY ==
[2022-11-29 07:54] VITALS: BMI 41.8
[2022-12-18 08:10] LABS: International Normalized Ratio 2.3; Prothrombin Time (Protime)PT. 25.4 SECONDS (11.7-14.9)
== END 2022-12-18 18:00 | disposition home or self-care (01) ==
LOC: LAB 07:39
PROVIDERS: Family Provider Internal Medicine; PCP Internal Medicine; Referring Provider Internal Medicine Cardiovascular Disease; Visit Provider Internal Medicine Cardiovascular Disease
DX: I48.92 Unspecified atrial flutter; I48.0 Paroxysmal atrial fibrillation; Z79.01 Long term (current) use of anticoagulants
CPT/HCPCS: 36415; 85610

== ENCOUNTER 2023-01-11 09:20 | Outpatient (RCR) | payer MEDICARE, OTHER, SELFPAY ==
[2022-12-26 19:52] VITALS: BMI 41.8
[2023-01-11 10:44] LABS: International Normalized Ratio 2.7; Prothrombin Time (Protime)PT. 28.6 SECONDS (11.7-14.9)
[2023-01-11 11:01] LABS: BNP,B-Type NATRIURETIC PEPTIDE 13.9 pg/mL (0-100)
[2023-01-11 11:07] LABS: AST(SGOT) 22 U/L (15-37); Alanine Aminotransfer ALT/SGPT 39 U/L (16-61); Albumin, Serum 3.7 g/dL (3.2-5.0); Alkaline Phosphatase 123 U/L (45-117); Anion Gap 7 (5-15); BUN 14 mg/dL (7-18); BUN/Creat Ratio 14.2 RATIO (10-20); Bilirubin, Direct 0.18 mg/dL (0.00-0.30); Calcium,Total 9.5 mg/dL (8.5-10.1); Chloride 105 mmol/L (98-107); Cholesterol 186 mg/dL (200); Creatinine, Serum 0.98 mg/dL (0.70-1.30); EST Glomerular Filtration Rate 81 mL/min (>60); Est Glom Filt Rate - Afr Amer 98 mL/min (>60); Globulin 4.3 g/dL (2.2-4.2); Glucose 97 mg/dL (74-106); High Density Lipoprotein 48 mg/dL; Potassium 4.3 mmol/L (3.5-5.1); Sodium Level 138 mmol/L (136-145); Triglycerides 200 mg/dL; Very Low Density Lipoprotein 40 mg/dL (5-40)
== END 2023-01-26 21:31 | disposition home or self-care (01) ==
LOC: LAB 09:20
PROVIDERS: Nurse Practitioner Gerontology; Family Provider Internal Medicine; PCP Internal Medicine; Referring Provider Internal Medicine Cardiovascular Disease; Visit Provider Internal Medicine Cardiovascular Disease
DX: I48.0 Paroxysmal atrial fibrillation (principal); I48.92 Unspecified atrial flutter; Z79.01 Long term (current) use of anticoagulants; R06.00 Dyspnea, unspecified; I10 Essential (primary) hypertension; E78.00 Pure hypercholesterolemia, unspecified
CPT/HCPCS: 36415; 80048; 80061; 80076; 83880; 85610

== ENCOUNTER 2023-02-22 08:08 | Outpatient (RCR) | payer MEDICARE, OTHER, SELFPAY ==
[2023-01-26 21:31] VITALS: BMI 41.8
[2023-02-22 09:06] LABS: International Normalized Ratio 2.9; Prothrombin Time (Protime)PT. 29.9 SECONDS (11.7-14.9)
== END 2023-02-25 00:32 | disposition home or self-care (01) ==
LOC: LAB 08:08
PROVIDERS: Family Provider Internal Medicine; PCP Internal Medicine; Referring Provider Internal Medicine Cardiovascular Disease; Visit Provider Internal Medicine Cardiovascular Disease
DX: I48.0 Paroxysmal atrial fibrillation (principal); I48.92 Unspecified atrial flutter; Z79.01 Long term (current) use of anticoagulants
CPT/HCPCS: 36415; 85610

== ENCOUNTER 2023-03-22 07:21 | Outpatient (RCR) | payer MEDICARE, OTHER, SELFPAY ==
[2023-02-25 00:33] VITALS: BMI 41.8
[2023-03-22 08:26] LABS: International Normalized Ratio 2.9; Prothrombin Time (Protime)PT. 30.8 SECONDS (11.7-14.9)
== END 2023-03-22 09:00 | disposition home or self-care (01) ==
LOC: LAB 07:21
PROVIDERS: Family Provider Internal Medicine; PCP Internal Medicine; Referring Provider Internal Medicine Cardiovascular Disease; Visit Provider Internal Medicine Cardiovascular Disease
DX: I48.0 Paroxysmal atrial fibrillation (principal); Z79.01 Long term (current) use of anticoagulants; I48.91 Unspecified atrial fibrillation
CPT/HCPCS: 36415; 85610

== ENCOUNTER 2023-04-27 06:18 | Outpatient (RCR) | payer MEDICARE, OTHER, SELFPAY ==
[2023-03-29 08:11] VITALS: BMI 41.8
[2023-04-27 08:15] LABS: International Normalized Ratio 3.1; Prothrombin Time (Protime)PT. 32.7 SECONDS (11.7-14.9)
== END 2023-04-27 18:00 | disposition home or self-care (01) ==
LOC: LAB 06:18
PROVIDERS: Family Provider Internal Medicine; PCP Internal Medicine; Referring Provider Internal Medicine Cardiovascular Disease; Visit Provider Internal Medicine Cardiovascular Disease
DX: I48.0 Paroxysmal atrial fibrillation (principal); I48.92 Unspecified atrial flutter; Z79.01 Long term (current) use of anticoagulants; R06.00 Dyspnea, unspecified; I10 Essential (primary) hypertension; E78.00 Pure hypercholesterolemia, unspecified
CPT/HCPCS: 36415; 85610

== ENCOUNTER → 2023-05-11 | Outpatient (CLI) | payer MEDICARE, OTHER, SELFPAY | END | disposition home or self-care (01) | LOC: SL 19:50 | PROVIDERS: PCP Internal Medicine; Referring Provider Nurse Practitioner Acute Care; Visit Provider Nurse Practitioner Acute Care | DX: G47.33 Obstructive sleep apnea (adult) (pediatric) (principal) | CPT/HCPCS: 95811 ==

== ENCOUNTER 2023-05-18 06:22 | Outpatient (RCR) | payer MEDICARE, OTHER, SELFPAY ==
[2023-04-27 21:14] VITALS: BMI 41.8
[2023-05-18 08:26] LABS: International Normalized Ratio 3.1; Prothrombin Time (Protime)PT. 32.7 SECONDS (11.7-14.9)
== END 2023-05-28 18:00 | disposition home or self-care (01) ==
LOC: LAB 06:22
PROVIDERS: Family Provider Internal Medicine; PCP Internal Medicine; Referring Provider Internal Medicine Cardiovascular Disease; Visit Provider Internal Medicine Cardiovascular Disease
DX: I48.0 Paroxysmal atrial fibrillation (principal); Z79.01 Long term (current) use of anticoagulants
CPT/HCPCS: 36415; 85610

== ENCOUNTER → 2023-05-24 | Outpatient (CLI) | payer MEDICARE, OTHER, SELFPAY | END | disposition home or self-care (01) | LOC: SL 09:34 | PROVIDERS: PCP Internal Medicine; Visit Provider Nurse Practitioner Acute Care | DX: Z00.00 Encounter for general adult medical examination without abnormal findings (principal) ==

== ENCOUNTER 2023-06-15 08:13 | Outpatient (RCR) | payer MEDICARE, OTHER, SELFPAY ==
[2023-05-29 00:10] VITALS: BMI 41.8
[2023-06-15 09:04] LABS: International Normalized Ratio 3.1; Prothrombin Time (Protime)PT. 32.5 SECONDS (11.7-14.9)
== END 2023-06-15 18:00 | disposition home or self-care (01) ==
LOC: LAB 08:13
PROVIDERS: Family Provider Internal Medicine; PCP Internal Medicine; Referring Provider Internal Medicine Cardiovascular Disease; Visit Provider Internal Medicine Cardiovascular Disease
DX: I48.0 Paroxysmal atrial fibrillation (principal); I48.92 Unspecified atrial flutter; Z79.01 Long term (current) use of anticoagulants; R06.00 Dyspnea, unspecified; I10 Essential (primary) hypertension; E78.00 Pure hypercholesterolemia, unspecified
CPT/HCPCS: 36415; 85610

== ENCOUNTER 2023-07-24 09:21 | Outpatient (RCR) | payer MEDICARE, OTHER, SELFPAY ==
[2023-06-28 21:52] VITALS: BMI 41.8
[2023-07-24 10:05] LABS: International Normalized Ratio 3.4; Prothrombin Time (Protime)PT. 35.1 SECONDS (11.7-14.9)
== END 2023-07-24 18:00 | disposition home or self-care (01) ==
LOC: LAB 09:21
PROVIDERS: Family Provider Internal Medicine; PCP Internal Medicine; Referring Provider Internal Medicine Cardiovascular Disease; Visit Provider Internal Medicine Cardiovascular Disease
DX: I48.0 Paroxysmal atrial fibrillation (principal); I48.92 Unspecified atrial flutter; Z79.01 Long term (current) use of anticoagulants
CPT/HCPCS: 36415; 85610

== ENCOUNTER → 2023-07-24 | Outpatient (CLI) | payer MEDICARE, OTHER, SELFPAY ==
--- NOTE | 2023-07-24 09:15 | RAD_ITS ---
STUDY: X-RAY CHEST REASON FOR EXAM: Male, 67 years old. Dyspnea TECHNIQUE: PA and lateral views of the chest. COMPARISON: Comparison is made with prior study dated February 15, 2022. FINDINGS: Hyperinflation. Scattered bilateral calcified granulomas. There is no demonstrated pleural abnormality. Normal size heart. Bilateral hilar calcifications. Normal visualized pulmonary arteries. There is atherosclerotic tortuosity of the aortic arch and descending thoracic aorta. There are degenerative changes of the visualized thoracic spine. Normal visualized ribs, clavicles, and shoulders. There is no demonstrated abnormality of the visualized soft tissue structures of the upper abdomen. RAD/Chest PA and Lateral IMPRESSION: Stable examination. No acute abnormality is seen. Electronically Signed: Terrance Branham MD at 13:00 EDT ,
[2023-07-24 10:04] LABS: Absolute Lymphocyte Count 3.15 X10^3/uL (0.83-4.51); Absolute Neutrophil Count 7.5 X10^3/uL (2.0-7.7); Basophil# 0.07 X10^3/uL; Basophil% 0.6 % (0-1); Eosinophil# 0.23 X10^3/uL; Eosinophils% 1.9 % (0-5); Hemoglobin 14.2 g/dL (13.0-16.5); Lymphocyte # 3.15 X10^3/ul (0.83-4.51); Lymphocyte % 25.5 % (19-41); Mean Corp Hgb Conc 31.6 g/dL (32-36); Mean Corpuscular Hgb 27.7 pg (27.0-32.0); Mean Corpuscular Volume 87.9 fL (80-94); Monocyte# 1.23 X10^3/uL; NRBC Flagged by Analyzer 0 % (0-5); Neutrophil # 7.54 X10^3/uL (2.7-7.7); Neutrophil % 60.9 % (47-70); Platelet Count 349 K/mm3 (150-450); RBC Distribution Width CV 14.2 % (11.6-14.6); RBC Distribution Width SD 45.5 fl (35.1-43.9); Red Blood Count 5.12 M/mm3 (4.6-6.2); White Blood Count 12.4 K/mm3 (4.4-11.0)
[2023-07-24 10:29] LABS: BNP,B-Type NATRIURETIC PEPTIDE 5.9 pg/mL (0-100)
[2023-07-24 10:36] LABS: Anion Gap 4 (5-15); BUN 17 mg/dL (7-18); BUN/Creat Ratio 16.5 RATIO (10-20); Calcium,Total 9.6 mg/dL (8.5-10.1); Chloride 108 mmol/L (98-107); Creatinine, Serum 1.03 mg/dL (0.70-1.30); EST Glomerular Filtration Rate 77 mL/min (>60); Est Glom Filt Rate - Afr Amer 93 mL/min (>60); Glucose 100 mg/dL (74-106); Potassium 4.3 mmol/L (3.5-5.1); Sodium Level 139 mmol/L (136-145); Thyroid Stim Hormone (TSH) 2.55 uIU/mL (0.358-3.74)
== END | disposition home or self-care (01) ==
LOC: RAD 09:05
PROVIDERS: PCP Internal Medicine; Referring Provider Nurse Practitioner Gerontology; Visit Provider Nurse Practitioner Gerontology
DX: R06.00 Dyspnea, unspecified (principal)
CPT/HCPCS: 36415; 71046; 80048; 83880; 84443; 85025

== ENCOUNTER 2023-08-03 07:08 | Outpatient (RCR) | payer MEDICARE, OTHER, SELFPAY ==
[2023-07-29 01:43] VITALS: BMI 41.8
[2023-08-03 08:09] LABS: Prothrombin Time (Protime)PT. 31.6 SECONDS (11.7-14.9)
== END 2023-08-03 18:00 | disposition home or self-care (01) ==
LOC: LAB 07:08
PROVIDERS: Family Provider Internal Medicine; PCP Internal Medicine; Referring Provider Internal Medicine Cardiovascular Disease; Visit Provider Internal Medicine Cardiovascular Disease
DX: I48.0 Paroxysmal atrial fibrillation (principal); I48.92 Unspecified atrial flutter; Z79.01 Long term (current) use of anticoagulants
CPT/HCPCS: 36415; 85610

== ENCOUNTER → 2023-08-16 | Outpatient (CLI) | payer MEDICARE, OTHER, SELFPAY | END | disposition home or self-care (01) | LOC: SL 09:32 | PROVIDERS: PCP Internal Medicine; Visit Provider Internal Medicine Critical Care Medicine | DX: G47.33 Obstructive sleep apnea (adult) (pediatric) (principal) | CPT/HCPCS: 98960; G0463 ==

== ENCOUNTER 2023-08-31 07:58 | Outpatient (RCR) | payer MEDICARE, OTHER, SELFPAY ==
[2023-08-28 22:46] VITALS: BMI 41.8
[2023-08-31 08:33] LABS: International Normalized Ratio 3.4; Prothrombin Time (Protime)PT. 34.7 SECONDS (11.7-14.9)
== END 2023-09-27 18:00 | disposition home or self-care (01) ==
LOC: LAB 07:58
PROVIDERS: Family Provider Internal Medicine; PCP Internal Medicine; Referring Provider Internal Medicine Cardiovascular Disease; Visit Provider Internal Medicine Cardiovascular Disease
DX: I48.0 Paroxysmal atrial fibrillation (principal); I48.92 Unspecified atrial flutter; Z79.01 Long term (current) use of anticoagulants; I48.91 Unspecified atrial fibrillation
CPT/HCPCS: 36415; 85610

== ENCOUNTER 2023-10-18 09:44 | Outpatient (RCR) | payer MEDICARE, OTHER, SELFPAY ==
[2023-09-28 03:05] VITALS: BMI 41.8
[2023-10-18 10:57] LABS: International Normalized Ratio 2.4; Prothrombin Time (Protime)PT. 26.1 SECONDS (11.7-14.9)
== END 2023-10-28 18:00 | disposition home or self-care (01) ==
LOC: LAB 09:44
PROVIDERS: Family Provider Internal Medicine; PCP Internal Medicine; Referring Provider Internal Medicine Cardiovascular Disease; Visit Provider Internal Medicine Cardiovascular Disease
DX: I48.0 Paroxysmal atrial fibrillation (principal); Z79.01 Long term (current) use of anticoagulants
CPT/HCPCS: 36415; 85610

== ENCOUNTER 2023-12-14 06:40 | Outpatient (RCR) | payer MEDICARE, OTHER, SELFPAY ==
[2023-10-28 20:53] VITALS: BMI 41.8
[2023-12-14 09:16] LABS: Prothrombin Time (Protime)PT. 23.3 SECONDS (11.7-14.9)
== END 2023-12-27 18:00 | disposition home or self-care (01) ==
LOC: LAB 06:40
PROVIDERS: Family Provider Internal Medicine; PCP Internal Medicine; Referring Provider Internal Medicine Cardiovascular Disease; Visit Provider Internal Medicine Cardiovascular Disease
DX: I48.0 Paroxysmal atrial fibrillation (principal); Z79.01 Long term (current) use of anticoagulants
CPT/HCPCS: 36415; 85610

== ENCOUNTER 2024-02-04 05:49 | Outpatient (RCR) | payer MEDICARE, OTHER, SELFPAY ==
[2023-12-27 22:09] VITALS: BMI 41.8
[2024-02-04 07:27] LABS: International Normalized Ratio 1.9; Prothrombin Time (Protime)PT. 22.1 SECONDS (11.7-14.9)
== END 2024-02-26 22:35 | disposition home or self-care (01) ==
LOC: LAB 05:49
PROVIDERS: Family Provider Internal Medicine; PCP Internal Medicine; Referring Provider Internal Medicine Cardiovascular Disease; Visit Provider Internal Medicine Cardiovascular Disease
DX: I48.0 Paroxysmal atrial fibrillation (principal); Z79.01 Long term (current) use of anticoagulants
CPT/HCPCS: 36415; 85610

== ENCOUNTER 2024-03-14 06:35 | Outpatient (RCR) | payer MEDICARE, OTHER, SELFPAY ==
[2024-02-26 22:35] VITALS: BMI 41.8
[2024-03-14 09:19] LABS: International Normalized Ratio 2.1; Prothrombin Time (Protime)PT. 23.8 SECONDS (11.7-14.9)
== END 2024-03-14 18:00 | disposition home or self-care (01) ==
LOC: LAB 06:35
PROVIDERS: Family Provider Internal Medicine; PCP Internal Medicine; Referring Provider Internal Medicine Cardiovascular Disease; Visit Provider Internal Medicine Cardiovascular Disease
DX: I48.0 Paroxysmal atrial fibrillation (principal); Z79.01 Long term (current) use of anticoagulants
CPT/HCPCS: 36415; 85610

== ENCOUNTER 2024-04-09 06:32 | Outpatient (RCR) | payer MEDICARE, OTHER, SELFPAY ==
[2024-03-31 08:52] VITALS: BMI 41.8
[2024-04-09 09:54] LABS: International Normalized Ratio 2.6; Prothrombin Time (Protime)PT. 27.5 SECONDS (11.7-14.9)
== END 2024-04-09 18:00 | disposition home or self-care (01) ==
LOC: LAB 06:32
PROVIDERS: Family Provider Internal Medicine; PCP Internal Medicine; Referring Provider Internal Medicine Cardiovascular Disease; Visit Provider Internal Medicine Cardiovascular Disease
DX: I48.0 Paroxysmal atrial fibrillation (principal); Z79.01 Long term (current) use of anticoagulants
CPT/HCPCS: 36415; 85610

== ENCOUNTER → 2024-04-24 | Outpatient (CLI) | payer MEDICARE, OTHER, SELFPAY ==
[2024-04-24 09:48] LABS: Absolute Lymphocyte Count 2.51 X10^3/uL (0.83-4.51); Absolute Neutrophil Count 6.2 X10^3/uL (2.0-7.7); Basophil# 0.06 X10^3/uL; Basophil% 0.6 % (0-1); Eosinophil# 0.14 X10^3/uL; Eosinophils% 1.4 % (0-5); Hematocrit 45.2 % (40-54); Hemoglobin 14.1 g/dL (13.0-16.5); Lymphocyte # 2.51 X10^3/ul (0.83-4.51); Lymphocyte % 25.7 % (19-41); Mean Corp Hgb Conc 31.2 g/dL (32-36); Mean Corpuscular Volume 86.4 fL (80-94); Monocyte# 0.83 X10^3/uL; Monocyte% 8.5 % (0-10); NRBC Flagged by Analyzer 0 % (0-5); Neutrophil # 6.16 X10^3/uL (2.7-7.7); Neutrophil % 63.2 % (47-70); Platelet Count 310 K/mm3 (150-450); RBC Distribution Width CV 14.5 % (11.6-14.6); RBC Distribution Width SD 45.9 fl (35.1-43.9); Red Blood Count 5.23 M/mm3 (4.6-6.2); White Blood Count 9.8 K/mm3 (4.4-11.0)
[2024-04-24 10:08] LABS: BNP,B-Type NATRIURETIC PEPTIDE 24.2 pg/mL (0-100)
[2024-04-24 10:13] LABS: AST(SGOT) 23 U/L (15-37); Alanine Aminotransfer ALT/SGPT 47 U/L (16-61); Albumin, Serum 3.8 g/dL (3.2-5.0); Alkaline Phosphatase 101 U/L (45-117); Anion Gap 7 (5-15); BUN 16 mg/dL (7-18); Bilirubin, Direct 0.17 mg/dL (0.00-0.30); Calcium,Total 9.3 mg/dL (8.5-10.1); Chloride 106 mmol/L (98-107); Cholesterol 193 mg/dL (200); Creatinine, Serum 0.89 mg/dL (0.70-1.30); EST Glomerular Filtration Rate 91 mL/min (>60); Est Glom Filt Rate - Afr Amer 110 mL/min (>60); Globulin 4.1 g/dL (2.2-4.2); Glucose 101 mg/dL (74-106); High Density Lipoprotein 53 mg/dL; Potassium 4.4 mmol/L (3.5-5.1); Protein, Total 7.9 g/dL (6.4-8.2); Sodium Level 139 mmol/L (136-145); Triglycerides 96 mg/dL; Very Low Density Lipoprotein 19 mg/dL (5-40)
== END | disposition home or self-care (01) ==
LOC: LAB 09:11
PROVIDERS: PCP Internal Medicine; Referring Provider Nurse Practitioner Gerontology; Visit Provider Nurse Practitioner Gerontology
DX: E78.00 Pure hypercholesterolemia, unspecified (principal); R06.09 Other forms of dyspnea
CPT/HCPCS: 36415; 80048; 80061; 80076; 83880; 85025

== ENCOUNTER 2024-05-09 06:32 | Outpatient (RCR) | payer MEDICARE, OTHER, SELFPAY ==
[2024-04-27 22:23] VITALS: BMI 41.8
[2024-05-09 07:02] LABS: International Normalized Ratio 2.9
== END 2024-05-28 18:00 | disposition home or self-care (01) ==
LOC: LAB 06:32
PROVIDERS: Family Provider Internal Medicine; PCP Internal Medicine; Referring Provider Internal Medicine Cardiovascular Disease; Visit Provider Internal Medicine Cardiovascular Disease
DX: I48.0 Paroxysmal atrial fibrillation (principal); Z79.01 Long term (current) use of anticoagulants
CPT/HCPCS: 36415; 85610

== ENCOUNTER → 2024-05-14 | Outpatient (CLI) | payer MEDICARE, OTHER, SELFPAY ==
--- NOTE | 2024-05-14 13:31 | ECHOD_ITS ---
Reason For Study: SOB Procedure This was a 2D Doppler, Color Flow transthoracic echocardiogram. The study was technically difficult. Exam performed in department. Left Ventricle Normal left ventricle. Mild concentric left ventricular hypertrophy. The estimated ejection fraction is 65 %. Stage 2 diastolic dysfunction. No regional wall motion abnormalities noted. Right Ventricle Normal RV size. Normal systolic function. Atria Normal left atrium. Normal right atrium. Mitral Valve Normal mitral valve. Tricuspid Valve Normal tricuspid valve. Mild (1+) tricuspid valve insufficiency. Pulmonary artery systolic pressure is 44 mmHg. Aortic Valve Normal aortic valve. Pulmonic Valve Normal pulmonic valve. Great Vessels Normal aortic root. The pulmonary artery is normal size. Normal inferior vena cava. Pericardium/Pleural No pericardial effusion. MMode/2D Measurements & Calculations LVIDd: 4.1 cm IVSd: 1.3 cm Ao root diam: 3.5 cm LVIDs: 2.9 cm LVPWd: 1.3 cm RVDd: 4.2 cm FS: 30.1 % LAV(MOD-bp): 78.5 ml LVAd ap4: 31.5 cm2 LVAd ap2: 30.5 cm2 LAV(MOD-bp) Indexed: 29.7 ml/m2 LVLd ap4: 8.6 cm LVLd ap2: 9.0 cm LAV(MOD-sp2): 68.6 ml EDV(MOD-sp4): 100.0 ml EDV(MOD-sp2): 90.1 ml LAV(MOD-sp4): 63.9 ml EDV(sp4-el): 98.1 ml EDV(sp2-el): 87.6 ml LVAs ap4: 17.3 cm2 LVAs ap2: 15.6 cm2 LVLs ap4: 7.4 cm LVLs ap2: 7.8 cm ESV(MOD-sp4): 35.8 ml ESV(MOD-sp2): 28.8 ml ESV(sp4-el): 34.1 ml ESV(sp2-el): 26.3 ml EF(MOD-sp4): 64.2 % EF(MOD-sp2): 68.1 % EF(sp4-el): 65.2 % SV(MOD-sp4): 64.2 ml SV(MOD-sp2): 61.3 ml SV(sp4-el): 64.0 ml LA dimension(2D): 4.7 cm TAPSE: 3.2 cm LA A4 area: 24.0 cm2 Time Measurements MV dec time: 0.23 sec Doppler Measurements & Calculations MV E max josh: 117.6 cm/sec Lat Peak E' Josh: 8.6 cm/sec Med Peak E' Josh: 10.1 cm/sec MV A max josh: 89.3 cm/sec E/E' lat: 13.7 E/E' med: 11.6 MV E/A: 1.3 MV dec slope: 514.3 cm/sec2 Ao V2 max: 178.3 cm/sec LV V1 max: 127.8 cm/sec Ao max P.8 mmHg LV V1 max P.5 mmHg Ao V2 mean: 114.6 cm/sec LV V1 mean P.4 mmHg Ao mean P.1 mmHg LV V1 mean: 84.6 cm/sec Ao V2 VTI: 31.8 cm LV V1 VTI: 25.1 cm AV (velocity ratio): 0.79 PA V2 max: 119.8 cm/sec TR max josh: 315.4 cm/sec TR max P.8 mmHg ECHO/Echo Complete Interpretation Summary Normal left ventricle. The estimated ejection fraction is 65 %. Stage 2 diastolic dysfunction. Pulmonary artery systolic pressure is 44 mmHg. Ordering Physician: Tasneem Sunshine Referring Physician: Marie Marquis M.D. Performed By: Pretty Urbina RDCS and Student
== END | disposition home or self-care (01) ==
LOC: CVS 13:30
PROVIDERS: PCP Internal Medicine; Referring Provider Nurse Practitioner Gerontology; Visit Provider Nurse Practitioner Gerontology
DX: R06.00 Dyspnea, unspecified (principal)
CPT/HCPCS: 93306

== ENCOUNTER → 2024-05-23 | Outpatient (CLI) | payer MEDICARE, OTHER, SELFPAY ==
[2024-05-23 07:54] LABS: Anion Gap 3 (5-15); BUN 24 mg/dL (7-18); BUN/Creat Ratio 20.5 RATIO (10-20); Calcium,Total 9.8 mg/dL (8.5-10.1); Chloride 104 mmol/L (98-107); Creatinine, Serum 1.17 mg/dL (0.70-1.30); EST Glomerular Filtration Rate 66 mL/min (>60); Est Glom Filt Rate - Afr Amer 80 mL/min (>60); Glucose 105 mg/dL (74-106); Potassium 4.2 mmol/L (3.5-5.1); Sodium Level 137 mmol/L (136-145)
== END | disposition home or self-care (01) ==
LOC: LAB 06:33
PROVIDERS: PCP Internal Medicine; Referring Provider Physician Assistant Medical; Visit Provider Physician Assistant Medical
DX: R06.00 Dyspnea, unspecified (principal)
CPT/HCPCS: 36415; 80048

== ENCOUNTER 2024-06-13 06:37 | Outpatient (RCR) | payer MEDICARE, OTHER, SELFPAY ==
[2024-05-28 20:25] VITALS: BMI 41.8
[2024-06-13 07:02] LABS: International Normalized Ratio 2.6; Prothrombin Time (Protime)PT. 27.5 SECONDS (11.7-14.9)
== END 2024-06-13 18:00 | disposition home or self-care (01) ==
LOC: LAB 06:37
PROVIDERS: Family Provider Internal Medicine; PCP Internal Medicine; Referring Provider Internal Medicine Cardiovascular Disease; Visit Provider Internal Medicine Cardiovascular Disease
DX: I48.0 Paroxysmal atrial fibrillation (principal); Z79.01 Long term (current) use of anticoagulants
CPT/HCPCS: 36415; 85610

== ENCOUNTER 2024-07-17 06:37 | Outpatient (RCR) | payer MEDICARE, OTHER, SELFPAY ==
[2024-06-29 02:10] VITALS: BMI 41.8
[2024-07-17 07:30] LABS: International Normalized Ratio 2.3; Prothrombin Time (Protime)PT. 24.7 SECONDS (11.7-14.9)
== END 2024-07-17 18:00 | disposition home or self-care (01) ==
LOC: LAB 06:37
PROVIDERS: Family Provider Internal Medicine; PCP Internal Medicine; Referring Provider Internal Medicine Cardiovascular Disease; Visit Provider Internal Medicine Cardiovascular Disease
DX: I48.0 Paroxysmal atrial fibrillation (principal); Z79.01 Long term (current) use of anticoagulants
CPT/HCPCS: 36415; 85610

== ENCOUNTER 2024-08-14 06:38 | Outpatient (RCR) | payer MEDICARE, OTHER, SELFPAY ==
[2024-07-28 22:59] VITALS: BMI 41.8
[2024-08-14 08:21] LABS: International Normalized Ratio 2.6; Prothrombin Time (Protime)PT. 27.9 SECONDS (11.7-14.9)
== END 2024-08-14 18:00 | disposition home or self-care (01) ==
LOC: LAB 06:38
PROVIDERS: Family Provider Internal Medicine; PCP Internal Medicine; Referring Provider Internal Medicine Cardiovascular Disease; Visit Provider Internal Medicine Cardiovascular Disease
DX: I48.0 Paroxysmal atrial fibrillation (principal); Z79.01 Long term (current) use of anticoagulants
CPT/HCPCS: 36415; 85610

== ENCOUNTER 2024-09-18 06:44 | Outpatient (RCR) | payer MEDICARE, OTHER, SELFPAY ==
[2024-08-28 20:56] VITALS: BMI 41.8
[2024-09-18 08:03] LABS: International Normalized Ratio 2.5; Prothrombin Time (Protime)PT. 26.9 SECONDS (11.7-14.9)
== END 2024-09-27 18:00 | disposition home or self-care (01) ==
LOC: LAB 06:44
PROVIDERS: Family Provider Internal Medicine; PCP Internal Medicine; Referring Provider Internal Medicine Cardiovascular Disease; Visit Provider Internal Medicine Cardiovascular Disease
DX: I48.0 Paroxysmal atrial fibrillation (principal); Z79.01 Long term (current) use of anticoagulants; I48.92 Unspecified atrial flutter; I48.91 Unspecified atrial fibrillation

== ENCOUNTER 2024-10-17 08:11 | Outpatient (RCR) | payer MEDICARE, OTHER, SELFPAY ==
[2024-09-27 22:42] VITALS: BMI 41.8
[2024-10-17 08:59] LABS: International Normalized Ratio 2.6
== END 2024-10-17 18:00 | disposition home or self-care (01) ==
LOC: LAB 08:11
PROVIDERS: Family Provider Internal Medicine; PCP Internal Medicine; Referring Provider Internal Medicine Cardiovascular Disease; Visit Provider Internal Medicine Cardiovascular Disease
DX: I48.0 Paroxysmal atrial fibrillation (principal); Z79.01 Long term (current) use of anticoagulants
CPT/HCPCS: 36415; 85610

== ENCOUNTER 2024-11-21 06:37 | Outpatient (RCR) | payer MEDICARE, OTHER, SELFPAY ==
[2024-10-29 03:49] VITALS: BMI 41.8
[2024-11-21 07:51] LABS: International Normalized Ratio 3.2; Prothrombin Time (Protime)PT. 33.8 SECONDS (11.7-14.9)
== END 2024-11-21 18:00 | disposition home or self-care (01) ==
LOC: LAB 06:37
PROVIDERS: Family Provider Internal Medicine; PCP Internal Medicine; Referring Provider Internal Medicine Cardiovascular Disease; Visit Provider Internal Medicine Cardiovascular Disease
DX: I48.0 Paroxysmal atrial fibrillation (principal); Z79.01 Long term (current) use of anticoagulants
CPT/HCPCS: 36415; 85610

== ENCOUNTER 2024-12-19 08:23 | Outpatient (RCR) | payer MEDICARE, OTHER, SELFPAY ==
[2024-11-28 21:07] VITALS: BMI 41.8
[2024-12-19 09:19] LABS: International Normalized Ratio 2.6; Prothrombin Time (Protime)PT. 28.4 SECONDS (11.7-14.9)
== END 2024-12-26 18:00 | disposition home or self-care (01) ==
LOC: LAB 08:23
PROVIDERS: Family Provider Internal Medicine; PCP Internal Medicine; Referring Provider Internal Medicine Cardiovascular Disease; Visit Provider Internal Medicine Cardiovascular Disease
DX: I48.0 Paroxysmal atrial fibrillation (principal); Z79.01 Long term (current) use of anticoagulants; I48.92 Unspecified atrial flutter; I48.91 Unspecified atrial fibrillation
CPT/HCPCS: 36415; 85610

== ENCOUNTER 2025-01-16 06:51 | Outpatient (RCR) | payer MEDICARE, OTHER, SELFPAY ==
[2024-12-27 03:44] VITALS: BMI 41.8
[2025-01-16 08:06] LABS: Prothrombin Time (Protime)PT. 31.6 SECONDS (11.7-14.9)
== END 2025-01-16 18:00 | disposition home or self-care (01) ==
LOC: LAB 06:51
PROVIDERS: Family Provider Internal Medicine; PCP Internal Medicine; Referring Provider Internal Medicine Cardiovascular Disease; Visit Provider Internal Medicine Cardiovascular Disease
DX: I48.0 Paroxysmal atrial fibrillation (principal); Z79.01 Long term (current) use of anticoagulants
CPT/HCPCS: 36415; 85610

== ENCOUNTER 2025-02-13 06:39 | Outpatient (RCR) | payer MEDICARE, OTHER, SELFPAY ==
[2025-01-26 21:46] VITALS: BMI 41.8
[2025-02-13 08:48] LABS: International Normalized Ratio 2.5; Prothrombin Time (Protime)PT. 27.5 SECONDS (11.7-14.9)
== END 2025-02-25 18:00 | disposition home or self-care (01) ==
LOC: LAB 06:39
PROVIDERS: Family Provider Internal Medicine; PCP Internal Medicine; Referring Provider Internal Medicine Cardiovascular Disease; Visit Provider Internal Medicine Cardiovascular Disease
DX: I48.0 Paroxysmal atrial fibrillation (principal); Z79.01 Long term (current) use of anticoagulants
CPT/HCPCS: 36415; 85610

== ENCOUNTER 2025-03-13 06:44 | Outpatient (RCR) | payer MEDICARE, OTHER, SELFPAY ==
[2025-02-25 20:35] VITALS: BMI 41.8
[2025-03-13 08:33] LABS: International Normalized Ratio 2.6; Prothrombin Time (Protime)PT. 28.7 SECONDS (11.7-14.9)
== END 2025-03-13 18:00 | disposition home or self-care (01) ==
LOC: LAB 06:44
PROVIDERS: Family Provider Internal Medicine; PCP Internal Medicine; Referring Provider Internal Medicine Cardiovascular Disease; Visit Provider Internal Medicine Cardiovascular Disease
DX: I48.0 Paroxysmal atrial fibrillation (principal); Z79.01 Long term (current) use of anticoagulants
CPT/HCPCS: 36415; 85610

== ENCOUNTER 2025-04-21 06:42 | Outpatient (RCR) | payer MEDICARE, OTHER, SELFPAY ==
[2025-03-28 20:38] VITALS: BMI 41.8
[2025-04-21 07:01] LABS: Absolute Lymphocyte Count 3.18 X10^3/uL (0.83-4.51); Basophil% 0.8 % (0-1); Eosinophils% 1.7 % (0-5); Hemoglobin 14.8 g/dL (13.0-16.5); Lymphocyte # 3.18 X10^3/ul (0.83-4.51); Lymphocyte % 26.6 % (19-41); Mean Corp Hgb Conc 32.2 g/dL (32-36); Mean Corpuscular Hgb 28.4 pg (27.0-32.0); Mean Corpuscular Volume 88.3 fL (80-94); Mean Platelet Vol. 9.8 fl (6.2-12.0); Monocyte# 1.26 X10^3/uL; Monocyte% 10.6 % (0-10); NRBC Flagged by Analyzer 0 % (0-5); Neutrophil # 7.02 X10^3/uL (2.7-7.7); Neutrophil % 58.8 % (47-70); Platelet Count 339 K/mm3 (150-450); RBC Distribution Width CV 14.3 % (11.6-14.6); RBC Distribution Width SD 45.5 fl (35.1-43.9); Red Blood Count 5.21 M/mm3 (4.6-6.2); White Blood Count 11.9 K/mm3 (4.4-11.0)
[2025-04-21 07:14] LABS: International Normalized Ratio 2.9; Prothrombin Time (Protime)PT. 31.2 SECONDS (11.7-14.9)
[2025-04-21 07:36] LABS: ALB/GLOB Ratio 1.2 RATIO (0.9-2.4); AST(SGOT) 25 U/L (<=37); Alanine Aminotransfer ALT/SGPT 32 U/L (<=46); Albumin, Serum 4.5 g/dL (3.4-4.8); Alkaline Phosphatase 103 U/L (40-129); Anion Gap 12 (5-15); BUN 21 mg/dL (4-19); Calcium,Total 9.7 mg/dL (7.6-11.0); Carbon Dioxide 24.5 mmol/L (21.0-32.0); Chloride 100 mmol/L (98-108); Cholesterol 209 mg/dL (<=200); Creatinine, Serum 1.06 mg/dL (0.70-1.20); EST Glomerular Filtration Rate 76 (>60); Globulin 3.7 g/dL (2.2-4.2); Glucose 117 mg/dL (70-99); High Density Lipoprotein 49 mg/dL; Low Density Lipoprotein Calc. 133 mg/dL; Magnesium 2.3 mg/dL (1.5-2.2); Potassium 5.1 mmol/L (3.3-5.1); Protein, Total 8.3 g/dL (5.9-8.4); Sodium Level 137 mmol/L (133-145); Total Bilirubin 0.61 mg/dL (0.00-1.30); Triglycerides 139 mg/dL; Very Low Density Lipoprotein 28 mg/dL (5-40); cholesterol:hdl ratio screen 4.29
== END 2025-04-21 18:00 | disposition home or self-care (01) ==
LOC: LAB 06:42
PROVIDERS: Nurse Practitioner Family; Family Provider Internal Medicine; PCP Internal Medicine; Referring Provider Internal Medicine Cardiovascular Disease; Visit Provider Internal Medicine Cardiovascular Disease
DX: I48.0 Paroxysmal atrial fibrillation (principal); Z79.01 Long term (current) use of anticoagulants; I48.92 Unspecified atrial flutter; I10 Essential (primary) hypertension; E78.00 Pure hypercholesterolemia, unspecified
CPT/HCPCS: 36415; 80053; 80061; 83735; 85025; 85610

== ENCOUNTER 2025-05-22 06:41 | Outpatient (RCR) | payer MEDICARE, OTHER, SELFPAY ==
[2025-05-08 07:34] LABS: Prothrombin Time (Protime)PT. 39.3 SECONDS (11.7-14.9)
[2025-05-15 08:33] LABS: Prothrombin Time (Protime)PT. 34.5 SECONDS (11.7-14.9)
[2025-05-22 08:03] LABS: Prothrombin Time (Protime)PT. 29.4 SECONDS (11.7-14.9)
== END 2025-05-28 20:53 | disposition home or self-care (01) ==
LOC: LAB 06:41
PROVIDERS: Family Provider Internal Medicine; PCP Internal Medicine; Referring Provider Internal Medicine Cardiovascular Disease; Visit Provider Internal Medicine Cardiovascular Disease
DX: I48.0 Paroxysmal atrial fibrillation (principal); Z79.01 Long term (current) use of anticoagulants
CPT/HCPCS: 36415; 85610

== ENCOUNTER 2025-07-17 06:44 | Outpatient (RCR) | payer MEDICARE, OTHER, SELFPAY ==
[2025-07-17 07:28] LABS: Prothrombin Time (Protime)PT. 22.7 SECONDS (11.7-14.9)
== END 2025-07-28 18:00 | disposition home or self-care (01) ==
LOC: LAB 06:44
PROVIDERS: Family Provider Internal Medicine; PCP Internal Medicine; Referring Provider Internal Medicine Cardiovascular Disease; Visit Provider Internal Medicine Cardiovascular Disease
DX: I48.0 Paroxysmal atrial fibrillation (principal); Z79.01 Long term (current) use of anticoagulants
CPT/HCPCS: 36415; 85610

== ENCOUNTER 2025-07-31 06:44 | Outpatient (RCR) | payer MEDICARE, OTHER, SELFPAY ==
[2025-07-31 07:14] LABS: Prothrombin Time (Protime)PT. 22.9 SECONDS (11.7-14.9)
== END 2025-07-31 18:00 | disposition home or self-care (01) ==
LOC: LAB 06:44
PROVIDERS: Family Provider Internal Medicine; PCP Internal Medicine; Referring Provider Internal Medicine Cardiovascular Disease; Visit Provider Internal Medicine Cardiovascular Disease
DX: I48.0 Paroxysmal atrial fibrillation (principal); Z79.01 Long term (current) use of anticoagulants
CPT/HCPCS: 36415; 85610

== ENCOUNTER 2025-09-18 06:47 | Outpatient (RCR) | payer MEDICARE, OTHER, SELFPAY ==
[2025-09-18 08:02] LABS: Prothrombin Time (Protime)PT. 24.2 SECONDS (11.7-14.9)
== END 2025-09-26 18:00 | disposition home or self-care (01) ==
LOC: LAB 06:47
PROVIDERS: Family Provider Internal Medicine; PCP Internal Medicine; Referring Provider Internal Medicine Cardiovascular Disease; Visit Provider Internal Medicine Cardiovascular Disease
DX: Z79.01 Long term (current) use of anticoagulants (principal); I48.0 Paroxysmal atrial fibrillation
CPT/HCPCS: 36415; 85610